=== PATIENT | female | born 1940 | race Caucasian/White ===

== ENCOUNTER 2016-12-08 16:43 | Inpatient (IN) | payer OTHER ==
[2016-12-08] MEDS ORDERED: ONDANSETRON DISINTEGRATING 4 MG TAB PO PRN (19:25)
[2016-12-08] MEDS ORDERED: PROMETHAZINE HCL 25 MG/ML INJ IVP PRN (19:25)
[2016-12-08] MEDS ORDERED: oxyCODONE IR 5 MG TAB PO PRN (19:25)
[2016-12-08] MEDS ORDERED: ONDANSETRON 4 MG/2 ML VIAL IVP PRN (19:25)
[2016-12-08] MEDS ORDERED: ALBUTEROL 3 ML DEYVIAL IH PRN (19:25)
[2016-12-08 20:03] LABS: % IMMATURE GRANULYOCYTES 0.2 % (0.0-1.1); ABSOLUTE IMMATURE GRANULOCYTES 0.01 10^3/uL (0.00-0.10); ADD DIFF? NO; ADD MORPH? NO; ADD SCAN? NO; ATYPICAL LYMPHOCYTE FLAG 10 (0-99); FRAGMENT RBC FLAG 0 (0-99); HEMATOCRIT 41.9 % (38.0-47.0); HEMOGLOBIN 13.9 g/dL (12.6-16.3); LEFT SHIFT FLG 0 (0-99); LIPEMIA HEMOLYSIS FLAG 80 (0-99); MEAN CELL HEMOGLOBIN 32.5 pg (27.9-34.1); MEAN CELL HEMOGLOBIN CONCENTR. 33.2 g/dL (32.4-36.7); MEAN CELL VOLUME 97.9 fL (81.5-99.8); MEAN PLATELET VOLUME 10.5 fL (8.7-11.7); PLATELET CLUMPS FLAG 0 (0-99); PLATELET COUNT 198 10^3/uL (150-400); RED BLOOD CELL COUNT 4.28 10^6/uL (4.18-5.33); RED CELL DISTRIBUTION WIDTH 14.1 % (11.5-15.2)
[2016-12-08 20:27] LABS: ANION GAP 9 mEq/L (8-16); CARBON DIOXIDE 29 mEq/l (22-31); CHLORIDE 101 mEq/L (97-110); CREATININE 0.6 mg/dL (0.6-1.0); GLOMERULAR FILTRATION RATE > 60; GLUCOSE 96 mg/dL (70-100); MAGNESIUM 1.8 mg/dL (1.6-2.3); POTASSIUM 3.9 mEq/L (3.5-5.2); SODIUM 139 mEq/L (134-144)
[2016-12-08] MEDS: LORazepam 0.5 MG TAB PO PRN (20:33)
[2016-12-08 20:39] LABS: TROPONIN I 0.015 ng/mL (0-0.034)
--- NOTE | 2016-12-08 20:44 | CPEKG ---
Heart Rate: 61 RR Interval: 984 P-R Interval: 128 QRSD Interval: 96 QT Interval: 464 QTC Interval: 468 P [place]: 46 QRS [place]: -8 T Wave [place]: 157 EKG Severity - ABNORMAL ECG - EKG Impression: SINUS RHYTHM EKG Impression: SUPRAVENTRICULAR BIGEMINY EKG Impression: ABNORMAL T, CONSIDER ISCHEMIA, LATERAL LEADS Electronically Signed By: Gavino Emerson 10-Dec-2016 08:49:00
--- NOTE | 2016-12-08 20:55 | DX ---
Portable Chest, Single View December 08, 2016 HISTORY: Chest pain. COMPARISON: November 2009. FINDINGS: The heart size is within normal limits. Calcification is seen in the aorta indicating ath erosclerotic disease. There is mild scarring at the left lung base. The right lung is clear. Emphy sematous configuration to the chest. Degenerative change thoracic spine. Surgical clips are seen at the right chest wall and axilla. IMPRESSION: Probable mild scarring at the left lower lobe. No other findings for acute cardiopulmon jacqui abnormality.
[2016-12-08 22:53] LABS: COLOR YELLOW; LEUKOCYTE ESTERASE,URINE NEGATIVE (NEGATIVE); NITRITE,URINE NEGATIVE (NEGATIVE)
[2016-12-08] MEDS ORDERED: IPRATROPIUM 0.03% NASAL SPRAY EACHNARE PRN (23:48)
--- NOTE | 2016-12-09 00:17 | GHP ---
[f rep st] HISTORY AND PHYSICAL DATE OF ADMISSION: 12/08/2016 CHIEF COMPLAINT: Anxiety attack. HISTORY: This is a 76-year-old female, with a past medical history that includes depression and hype rtension, who presents with which she describes as anxiety and concerns that this could be related to a primary cardiac etiology. The patient notes that these symptoms developed about 10 days ago. She has been seen in the ER at an outside hospital twice, and was hospitalized on one of these occasions . During that hospitalization, her blood pressure was noted to be elevated to the systolics of 190. She was started on lisinopril and given some Ativan, and otherwise discharged home without any testi ng. She notes that these symptoms continued intermittently since then. She had an episode today. S he did see her primary care physician, Dr. Andres, who was concerned that her EKGs were differ ent from prior, and for that reason, it was decided that she would be [facility]. Dr. Moses has seen the patient's EKGs and agreed with this plan. The giorgio ent herself notes that if indeed the symptoms are related to anxiety, that this would be a new thing as she has never had anxiety in the past. She currently feels well without any symptoms whatsoever. She also notes that elevated blood pressure is a new thing for her. She has never had that in the p ast. PAST MEDICAL HISTORY: 1. Hypertension. 2. Depression. 3. Anxiety. FAMILY HISTORY: Parents are . SOCIAL HISTORY: Patient is a nonsmoker. Denies significant alcohol use, and lives independently. REVIEW OF SYSTEMS: 10-point review of systems obtained, negative except as per HPI. HOME MEDICATIONS: 1. Lisinopril. 2. Ativan. 3. Atrovent nasal spray. 4. Citalopram. ALLERGIES: No known drug allergies. PHYSICAL EXAM: VITAL SIGNS: BP 148/79, heart rate 62, respiratory rate 18, O2 sats 94% on room air. Temperature is 36.9. GENERAL APPEARANCE: Well-developed/well-nourished female, awake, alert, in no acute distress. EYES: Anicteric. HENT: Oropharynx clear. CARDIOVASCULAR: RRR, no MRG. PULMONARY: CTA bilaterally. ABDOMEN: Soft, nontender, nondistended. EXTREMITIES: No clubbing, cyanosis, or edema. SKIN: Warm, dry, well perfused. NEURO/PSYCH: Oriented, appropriate, pleasant. CLINICAL DATA: Labs reviewed. CBC is completely unremarkable. Chemistry, likewise, unremarkable. ProBNP is 1180, up from 219 three years ago. Troponin is 0.015. Urinalysis is unremarkable. EKG, r eviewed and interpreted independently by myself, shows sinus rhythm. There is evidence of supraventr icular bigeminy and T-wave inversions inferiorly without old to compare. Chest x-ray shows scarring at the left lower lobe, nothing acute. ASSESSMENT AND PLAN: This is a 76-year-old female with no significant past medical history other miguelina n hypertension who presents with anxiety versus chest pain. 1. Chest pain. Somewhat difficult historian, but patient describes what she felt was likely anxiety , but sounds more consistent with chest discomfort. She will be placed on telemetry overnight with s erial troponins obtained. An echocardiogram will also be obtained. Cardiology has been consulted an d will see the patient in consultation in the morning. She likely will need further ischemic evaluat ion, but this will be deferred to Cardiology's discretion. Will obtain a lipid panel and TSH as well . 2. Elevated BNP without evidence of overt heart failure on exam, but again an echocardiogram and car diology consult have been ordered and are pending. 3. Hypertension. Per patient, this is new. She has been started on lisinopril and blood pressure h as been well controlled during this hospitalization and per her report prior to coming here as well. 4. Depression/anxiety. Will continue Ativan and citalopram. 5. Disposition. Observation status. I suspect she will need less than 48-hour stay for evaluation and management of above. 6. The patient is new to my care. Old records reviewed and summarized as per HPI and past medical h istory. Care plan reviewed with Dr. Andres including plans for Cardiology consultation. /[id number]/MODL
[2016-12-09] MEDS: LORazepam 0.5 MG TAB PO PRN ×2 (04:05→21:24)
[2016-12-09] MEDS: LORazepam 0.5 MG TAB PO SCH ×4 (04:07→23:07)
[2016-12-09 06:48] LABS: CHOLESTEROL 135 mg/dL (140-220); CHOLESTEROL/HDL RATIO 3.14 RATIO (1.00-4.44); HIGH DENSITY LIPOPROTEIN 43 mg/dL (40-85); LDL/HDL RATIO 1.88 RATIO (1.00-3.22); LOW DENSITY LIPOPROTEIN 81 mg/dL (80-100); NON-HIGH DENSITY LIPOPROTEIN 92 mg/dL (90-129); TRIGLYCERIDE 57 mg/dL (35-135); VERY LOW DENSITY LIPOPROTEINS 11 mg/dL (8-25)
[2016-12-09 06:59] LABS: TROPONIN I 0.014 ng/mL (0-0.034)
[2016-12-09] MEDS: CITALOPRAM 20 MG TAB PO SCH (08:18)
[2016-12-09] MEDS: LISINOPRIL 10 MG TAB PO SCH (08:18)
[2016-12-09] MEDS: ENOXAPARIN 40 MG/0.4 ML SYR SC SCH (08:20)
[2016-12-09] MEDS ORDERED: NITROGLYCERIN 0.4 MG BTL SL PRN (10:36)
[2016-12-09] MEDS ORDERED: ASPIRIN EC 325 MG TAB PO ONE ×2 (10:36→13:28)
[2016-12-09] MEDS ORDERED: DIAZEPAM 5 MG TAB PO ONE (10:36)
[2016-12-09] MEDS ORDERED: TEMAZEPAM 15 MG CAP PO PRN (10:36)
[2016-12-09] MEDS ORDERED: NS 1,000 ML IV SCH (10:45)
[2016-12-09 11:08] LABS: INR 1.05 (0.83-1.16); PROTIME(PATIENT) 13.6 SEC (12.0-15.0)
[2016-12-09 11:09] LABS: APTT 30.2 SEC (23.0-38.0)
--- NOTE | 2016-12-09 12:05 | ECHO ---
[id number] + + [id number] : : [place] [address] : : [phone] + + Adult Echocardiographic Report + ----+ :Name: Randall BENEDICT Date: 12/09/2016 09:50 AM BP: 123/79 mmHg : : Hospital Admission Number: [id number] Location: 208: :: 1940 Gender: Female Height: 70 in : :Age: 76 yrs Race: WH Weight: 153 lb : :Reason For Study: eval for wall motion abnl : : BSA: 1.9 meters2 : :History: abnl ecg, chest pain : + ----+ MMode/2D Measurements & Calculations IVSd: 0.79 cm RVDd: 2.9 cm FS: 29.3 % Ao root diam: LVPWd: 0.94 cm LVIDd: 4.6 cm EDV(Teich): 2.9 cm LVIDs: 3.3 cm 98.8 ml ESV(Teich): 43.2 ml EF(Teich): 56.3 % LVLd ap4: 7.5 cm SV(MOD-sp4): EDV(MOD-sp4): 77.0 ml 125.0 ml LVLs ap4: 6.8 cm ESV(MOD-sp4): 48.0 ml EF(MOD-sp4): 61.6 % Normal Measurement Values: + + :LVIDd (3.5-5.7cm) IVSd (0.6-1.1cm) LVPWd (0.6-1.1cm) Aortic Root (2.0-3.7cm)Left Atrium (1.5-4.0cm): :LV Vol(d) (76-115ml) LV Vol(s) (29-48ml) Ejec Fraction (50-65%)PV Nito (0.6- 1.2m/s) TV Nito (0.4-1.0m/s) : :MV E Nito (0.8-1.0m/s)MV A Nito (0.3-1.0m/s)LVOT Nito (0.7-1.2m/s) Asc Ao Nito ( 0.9-1.8m/s) : + + Doppler Measurements & Calculations MV E max nito: Ao V2 max: LV V1 max: PA V2 max: 75.5 cm/sec 153.6 cm/sec 110.6 cm/sec 107.5 cm/sec MV A max nito: Ao max PG: LV V1 max PG: PA max P.2 cm/sec 9.4 mmHg 4.9 mmHg 4.6 mmHg MV E/A: 0.74 MV dec time: 0.24 sec TR max nito: 237.7 cm/sec TR max P.6 mmHg RAP systole: 10.0 mmHg RVSP(TR): 32.6 mmHg Left Ventricle The left ventricle is normal in size and function. There is normal left ventricular wall thickness. Ejection Fraction = 55-60%. There is Doppler evidence for diastolic dysfunction. Very subtle mid to distal lateral hypokinesis. Right Ventricle The right ventricle is normal in size and function. Atria The left atrium is mildly dilated. The Left Atrial Volume is 35 ml/m2. The right atrium is borderline dilated. A dilated inferior vena cava suggests increased right atrial pressure. Mitral Valve The mitral valve leaflets appear thickened, but open well. There is no mitral valve stenosis. There is mild mitral regurgitation. Tricuspid Valve The tricuspid valve is normal in structure and function. There is no tricuspid stenosis. There is mild tricuspid regurgitation. Right ventricular systolic pressure is 33mmHg. Aortic Valve The aortic valve is trileaflet. There is no aortic stenosis. Mild aortic regurgitation. Pulmonic Valve The pulmonic valve is not well visualized. Trace pulmonic valvular regurgitation. Great Vessels The aortic root is normal size. Pericardium/Pleural Small pericardial effusion. No echocardiographic evidence for tamponade. Conclusion A two-dimensional transthoracic echocardiogram with M-mode and Doppler was performed. The left ventricle is normal in size and function. Ejection Fraction = 55-60%. There is Doppler evidence for diastolic dysfunction. Subtle mid to distal lateral hypokinesis The left atrium is mildly dilated. The Left Atrial Volume is 35 ml/m2. The right atrium is borderline dilated. A dilated inferior vena cava suggests increased right atrial pressure. There is mild mitral regurgitation. There is mild tricuspid regurgitation. Right ventricular systolic pressure is 33mmHg. Mild aortic regurgitation. Small pericardial effusion. No prior echo Final Reading Physician: Dr Duyen Tellez electronically signed on 12/09/2016 12:03 PM Performed By: Jayde Guo
[2016-12-09] MEDS ORDERED: diphenhydrAMINE 25 MG CAP PO ONE (13:28)
[2016-12-09] MEDS ORDERED: FAMOTIDINE 20 MG TAB ONE (13:28)
[2016-12-09] MEDS ORDERED: DIAZEPAM 5 MG TAB ONE (13:29)
[2016-12-09] MEDS ORDERED: MIDAZOLAM 2 MG/2 ML VIAL ONE (13:45)
[2016-12-09] MEDS ORDERED: LIDOCAINE 1% 30 ML SDV ONE (13:45)
[2016-12-09] MEDS ORDERED: fentaNYL 100 MCG/2 ML INJ ONE (13:45)
[2016-12-09] MEDS ORDERED: IOPAMIDOL (ISOVUE-370) 150 ML BTL IV ONE ×2 (13:46→14:41)
[2016-12-09] MEDS ORDERED: BIVALIRUDIN 250 MG/5 ML VIAL IV ONE (14:41)
[2016-12-09] MEDS ORDERED: NITROGLYCERIN 1,500 MCG/15 ML VIAL MISC ONE (14:41)
[2016-12-09] MEDS ORDERED: CLOPIDOGREL BISULFATE 75 MG TAB ONE (15:15)
[2016-12-09] MEDS ORDERED: ATROPINE SULFATE 1 MG/10 ML SYR IVP PRN (15:38)
[2016-12-09] MEDS ORDERED: HYDROCODONE/APAP 5/325 TAB PO PRN (15:38)
[2016-12-09] MEDS ORDERED: CLOPIDOGREL BISULFATE 75 MG TAB PO ONE (15:38)
--- NOTE | 2016-12-09 15:45 | CPEKG ---
Heart Rate: 58 RR Interval: 1034 P-R Interval: 128 QRSD Interval: 98 QT Interval: 488 QTC Interval: 480 P [place]: 51 QRS [place]: -3 T Wave [place]: 147 EKG Severity - ABNORMAL ECG - EKG Impression: SINUS RHYTHM WITH BRADYCARDIA AND SINUS ARRHYTHMIA EKG Impression: ABNORMAL T, CONSIDER ISCHEMIA, ANT-LAT LEADS Electronically Signed By: Gavino Emerson 10-Dec-2016 08:44:31
[2016-12-09] MEDS: ACETAMINOPHEN 325 MG TAB PO PRN (17:35)
--- NOTE | 2016-12-09 17:59 | HOSPPROG ---
Hospitalist Progress Note Assessment/Plan: #Atypical chest pain/SOB -concern for anginal equivalent and EKG findings concerning for early Wellen's -appreciate Cardiology consultation -plan for cath today #Anxiety -recently started on Celexa, Ativan #Accelerated HTN -Lisinopril #Diet: cardiac #DVT px; Lovenox Disp: warrants obs admission for concern of ACS and cardiac cath Subjective: no chest pain today Objective: Vital Signs Temp Pulse Resp BP Pulse Ox 36.5 C 56 L 16 153/82 H 91 L 12/09/16 16:54 12/09/16 16:54 12/09/16 16:54 12/09/16 16:54 12/09/16 16:54 Laboratory Results 12/08/16 19:51 12/08/16 19:51 12/08/16 12/09/16 12/10/16 05:59 05:59 05:59 Intake Total 300 Output Total 600 Balance -300 PT 13.6 SEC (12.0-15.0) 12/09/16 10:49 INR 1.05 (0.83-1.16) 12/09/16 10:49 - Physical Exam Constitutional: no apparent distress Eyes: PERRL Ears, Nose, Mouth, Throat: moist mucous membranes Cardiovascular: regular rate and rhythym, edema (no LE edema) Respiratory: no respiratory distress, no rales or rhonchi Gastrointestinal: normoactive bowel sounds, soft, non-tender abdomen Genitourinary: no bladder fullness Skin: warm Musculoskeletal: full muscle strength Neurologic: AAOx3 Psychiatric: interacting appropriately ICD10 Worksheet Patient Problems: Problems Problem Status Diagnosed Chest pain Acute - ICD10 Problem Qualifiers (1) Chest pain Qualifiers: Chest pain type: other chest pain Qualified Description: Other chest pain Qualifier Code(s): (R07.89) Other chest pain, (R07.8) Other chest pain
[2016-12-09] MEDS ORDERED: CARVEDILOL 3.125 MG TAB PO ONE (18:08)
[2016-12-09] MEDS: ATORVASTATIN CALCIUM 20 MG TAB PO SCH (21:23)
--- NOTE | 2016-12-09 23:30 | GCON ---
[f rep st] CONSULTATION REASON FOR CARDIOLOGY CONSULTATION: Abnormal electrocardiogram, patient having an episodes of shortness of breath, nausea and diaphoresis. HISTORY OF PRESENT ILLNESS: This patient is a 76-year-old female. She reports , starting 1 week ago, waking up in the morning, reporting doing fine until about 10 a.m., when she had an episode of flushing sensation, in which she noted she was mildly short of breath. She did report some mild nausea and GI disturbance. She did take her blood pressure and noted that was extremely elevated. This had worried her. She rested for a little bit with no improvement in symptoms, reporting that she called EMS who took her to the local hospital, and on upon arrival, she was noted to have blood pressures in the 200s. She was admitted. She was placed on the telemetry floor, she was seen by one of their hospitalists. She had been started on lisinopril, and she had been given Ativan. She reported mild improvement in her symptoms with the Ativan, and her blood pressure appeared to be better controlled. She was told that she was having panic attacks, with hypertension. She was discharged home. She reports since hospital discharge, she has been noticing several more episodes of these hot flushing sensations with nausea, mild shortness of breath. She has been taking Ativan every 8 hours and lisinopril. She has not noticed any significant blood pressure elevation, but is reporting that these incidents are happening at least once or twice a day, usually coming on spontaneously, then dissipating within an hour or two. Her records from the hospitalization were sent to her primary care provider, who reviewed her electrocardiogram, and it was noted that it was significantly different from her previous ones in the past, with noted more biphasic T-waves in V1 and V2, inverted T-waves in I and aVL, V5 and V6. She was concerned that no other cardiac testing had been done on the patient during her recent hospitalization, and she was concerned that her symptoms could be more possibly due to ACS, and had asked the patient to come to the hospital for direct admission. Since her hospital admission, she reports when she feels extremely stressed, she does have significantly more episodes. She denies having any chest pressure. Her laboratory studies have shown negative troponin levels x2. She was noted to have elevated BNP of 11,080. Her TSH was within normal limits. She has been on continuous cardiac monitoring which shows sinus rhythm with occasional PAC with occasional runs of nonsustained SVT for 2-3 beats. The patient reports history of palpitations a year and a half ago, during which she was evaluated by our services, Dr. Peace. A Holter monitor was done at that time, showing sinus rhythm with heart rate ranging from 46 beats to 130 beats per minute with average of 67 beats per minute. She was noted to have rare premature ventricular contraction and frequent premature atrial contractions, no SVT, no pauses. The patient reports prior to her most recent episode, she had been in her normal state health. She denies having any recent fevers, chills, night sweats. Denies any recent GI problems. Denies any history of palpitations, orthopnea, PND, weight gain, edema, near-syncope, or syncopal events. Denies any symptoms suggestive of TIA or CVA. The patient's cardiac risk factors include her age, she was a previous smoker 50 years ago, and family history of coronary artery disease, with father having an MD at 75. PAST MEDICAL HISTORY: Breast cancer in 1992, cataracts, endometriosis, GERD, glaucoma, hypertension, osteopenia, trigeminal neuralgia, depression, anxiety. PAST SURGICAL HISTORY: Cataract surgery, fractured elbow for which she underwent ORIF in 2010, hysterectomy, laser eye surgery, right breast mastectomy in 1992, rhizotomy for her right trigeminal neuralgia. FAMILY HISTORY: The patient reports her father of a myocardial infarction at age 75. Mother of multiple medical problems at age 84. SOCIAL HISTORY: She is a , she lives alone. She has one daughter, three grandchildren, all alive and well. She reports she is a previous smoker, quitting greater than 50 years ago. She reports one occasional alcoholic beverage nightly. Denies any illicit drug use. ALLERGIES: No known drug allergies. HOME MEDICATIONS: Atrovent 2 sprays each naris daily as needed, lorazepam 0.5 mg p.o. q.8 hours, Restoril 10 mg p.o. daily, 10 mg p.o. daily, herbs and supplements. REVIEW OF SYSTEMS: A 10-point Review of Systems done on this patient, all negative except as mentioned above. PHYSICAL EXAMINATION: GENERAL APPEARANCE: Elderly-looking female, mildly obese, alert and oriented to person, place, time, and situation. Appears to be under no acute distress at this time. CURRENT VITAL SIGNS: Blood pressure 123/79, respirations are 61, sinus rhythm, with occasional premature atrial contractions, respiration rate 18, saturating 92% on room air. Temperature 36.6 degrees Celsius. HEENT: Head is normocephalic, lips and tongue are pink and moist with no signs of cyanosis. Conjunctiva pink. NECK: Trachea is midline, +2 carotid pulses bilateral, no auscultated bruits, no jugular vein distention. RESPIRATORY: Lungs clear to auscultation, no rhonchi , rales or wheezes, no accessory muscle use, no intercostal muscle retraction noted. CARDIAC: Regular rate, regular rhythm, S1, S2, 1/6 systolic murmur noted along the left sternal border. No rubs or gallops noted, no S3. ABDOMEN : Soft, nontender, bowel sounds x4 quadrants. No organomegaly and no palpable masses. SKIN: [place], warm, dry, no cyanosis, no peripheral edema. VASCULAR: + 2 carotids bilateral, +2 radials bilateral, +1 dorsal pedal and posterior tibial pulses bilateral. NEURO: Cranial nerves 2-12 grossly intact. LABORATORY STUDIES: WBC 4.97, hemoglobin 13.9, hematocrit 41.9, platelet count 198. Sodium 139, potassium 3.9, chloride 101, CO2 29, BUN 10, creatinine 0.6, glucose 96, calcium 9.0, magnesium 1.8. Initial troponin of 0.015. ProBNP 1180. UA done this morning negative. Repeated troponin done this morning was 0.014. Triglycerides 57, total cholesterol 135, LDL 81, HDL 43. Patient noted to have an INR of 1.05. STUDIES: Initial electrocardiogram shows sinus rhythm with inverted T-waves in leads I, aVL, V5 and V6, patient also noted to have biphasic T-waves in V2 and V3. In comparison to previous electrocardiogram done on October 26, 2016, at [facility], inverted T-waves in lateral and biphasic T-waves in V2 and V3 are new. Chest x-ray showed no acute cardiopulmonary abnormality. Echocardiogram done this morning showed EF 55% to 60%, diastolic dysfunction, there is a subtle mid to distal lateral hypokinesis, LA is mildly dilated, RA is borderline dilated, dilated inferior vena cava suggesting increased right atrial pressures, mild MR, mild TR, RVSP was estimated at 33 mmHg, mild AI, small pericardial effusion. ASSESSMENT AND PLAN: 1. Flushing sensation with shortness of breath, nausea, and diaphoresis: Potentially concerned about possible cardiac ischemia, especially in light of recent electrocardiogram changes, negative troponin, but noted to have mildly abnormal echocardiogram with LV wall showing subtle mid to distal lateral hypokinesis. Patient with cardiac risk factors of age, previous smoker, and family history of hypertension, and family history of coronary artery disease, concerning that her symptoms are potentially her angina equivalent, after discussing with Dr. Sargent, reviewing past electrocardiograms an echocardiogram , it was decided that the patient should be further evaluated for cardiac ischemia by cardiac catheterization. Risks and benefits of this procedure were explained to the patient, she verbalizes understanding. Will plan for her to have this procedure done later today. Until then, she has been started on aspirin. Further recommendations will come post cardiac catheterization. 2. Diastolic dysfunction: On echocardiogram, patient noted to have diastolic dysfunction, mildly elevated BNP. BP appears to be controlled on home medication. Pending on results cardiac catheterization, consideration of starting her on diuretic. 3. Hypertension: Blood pressure currently well controlled on current regimen, will continue to follow and make adjustments as needed. 4. Premature atrial contractions: Patient with previous Holter monitoring showing frequent PACs, done a year and a half ago, noted to have episodes of premature atrial contractions with small runs of SVT 3-4 beats on monitor. TSH is within normal limits. Consider potentially starting her on a low-dose beta shantanu pending results of cardiac catheterization. 5. Depression/anxiety: Hospitalists have continued the patient's home dose of Ativan and citalopram. Thank you for this cardiac consultation. We will be glad to follow along with you. Further recommendations post cardiac catheterization. /[id number]/MODL MTDD
--- NOTE | 2016-12-10 02:30 | CPIP ---
[f rep st] INVASIVE CARDIAC PROCEDURE DATE OF PROCEDURE: 12/09/2016 PROCEDURE: 1. Coronary angiography. 2. Left ventriculography. 3. Stenting of 1st diagonal artery with Synergy drug-eluting stent. INDICATION: Acute coronary syndrome with EKG changes. ACCESS: Patient was prepped and draped in a sterile fashion. 1% lidocaine was used to anesthetize t he right inguinal region. A 6-Norwegian introducer sheath was placed selectively into the right common femoral artery via modified Seldinger technique. CORONARY ANGIOGRAPHY: A 6-Norwegian JL4 was advanced through the left main coronary artery and images o btained. The left main coronary artery bifurcated into an LAD and circumflex coronary arteries. The left main coronary artery was relatively short and appeared free of any significant disease. The le ft anterior descending coronary artery gave rise to 1 prominent diagonal branch, as well as 1 smaller diagonal branch. The left anterior descending coronary artery was diffusely diseased. In the midve ssel, there was a segmental 25% stenosis present. In the distal vessel, there was a long segmental 1 5% stenosis present. The 1st diagonal artery was a large vessel. The first diagonal artery had a pr oximal 99% stenosis with NIKKI-2 flow. The circumflex coronary artery was a large vessel. The circum flex coronary artery had mild luminal irregularities with no stenosis greater than 15%. 6-Norwegian JR4 was advanced to the right coronary artery and images obtained. The right coronary artery was domina nt. The right coronary artery appeared mild aneurysmal in the proximal segment, but was otherwise no rmal. LEFT VENTRICULOGRAPHY: A 6-Norwegian pigtail catheter was advanced in the left ventricle and images obt ained. Left ventricle was normal in size, had normal systolic function. Estimated ejection fraction is 55%. PERCUTANEOUS CORONARY INTERVENTION OF THE DIAGONAL ARTERY: A 6-Norwegian EBU 3.75 catheter was advanced through the left main and images obtained. Angiography confirmed the presence of high-grade disease involving the proximal 1st diagonal artery with reduced NIKKI flow. A loose wire was placed in the d istal vessel and position verified by angiography. A 1.2 x 12 Emerge balloon was used to pre-dilate the lesion. This was followed by a 2.0 x 15 Emerge balloon. Followup angiography demonstrated NIKKI- 3 flow with significant residual stenosis. A 2.25 x 24 Synergy drug-eluting stent was then placed. Followup angiography demonstrated NIKKI-3 flow, incomplete stent expansion in the proximal portion of the stent. The proximal portion of the stent was post-dilated with a 2.5 x 15 NC balloon. Followup angiography demonstrated NIKKI-3 flow. No residual stenosis. COMPLICATIONS: None. CONCLUSIONS: 1. Single-vessel coronary artery disease. 2. Normal left ventricular systolic function. 3. Status post successful stenting of the 1st diagonal artery. /[id number]/MODL
[2016-12-10 05:19] LABS: ANION GAP 5 mEq/L (8-16); CALCIUM 8.5 mg/dL (8.5-10.4); CARBON DIOXIDE 29 mEq/l (22-31); CHLORIDE 105 mEq/L (97-110); CREATININE 0.5 mg/dL (0.6-1.0); GLOMERULAR FILTRATION RATE > 60; GLUCOSE 80 mg/dL (70-100); POTASSIUM 3.8 mEq/L (3.5-5.2); SODIUM 139 mEq/L (134-144)
[2016-12-10] MEDS: LORazepam 0.5 MG TAB PO SCH ×3 (08:16→21:01)
[2016-12-10 08:35] LABS: % IMMATURE GRANULYOCYTES 0.2 % (0.0-1.1); ABSOLUTE IMMATURE GRANULOCYTES 0.01 10^3/uL (0.00-0.10); ADD DIFF? NO; ADD MORPH? NO; ADD SCAN? NO; ATYPICAL LYMPHOCYTE FLAG 10 (0-99); FRAGMENT RBC FLAG 0 (0-99); HEMATOCRIT 39.2 % (38.0-47.0); HEMOGLOBIN 13.1 g/dL (12.6-16.3); LEFT SHIFT FLG 0 (0-99); LIPEMIA HEMOLYSIS FLAG 80 (0-99); MEAN CELL HEMOGLOBIN 32.4 pg (27.9-34.1); MEAN CELL HEMOGLOBIN CONCENTR. 33.4 g/dL (32.4-36.7); MEAN PLATELET VOLUME 10.2 fL (8.7-11.7); PLATELET CLUMPS FLAG 0 (0-99); PLATELET COUNT 170 10^3/uL (150-400); RED BLOOD CELL COUNT 4.04 10^6/uL (4.18-5.33); RED CELL DISTRIBUTION WIDTH 13.9 % (11.5-15.2)
--- NOTE | 2016-12-10 08:35 | HOSPPROG ---
Hospitalist Progress Note Assessment/Plan: #CAD -cath 12/09 and GENEVA to 1st diagonal -repeat episodes today with mild bump in trop. TTE with no WM abnormalities. Repeat trop -Plavix, ASA, statin, Coreg, PRN nitro #Anxiety -recently started on Celexa, Ativan #Accelerated HTN -Lisinopril #Compensated diastolic HF -cont BP control #HLD: statin #Diet: cardiac #DVT px; Lovenox Disp: warrants inpatient admission given recurrent symptoms, elevated troponin and need for telemetry and cardiac testing Subjective: had 3 "hot flash/anxiety" episodes today Objective: Vital Signs Temp Pulse Resp BP Pulse Ox 36.6 C 77 14 121/69 H 95 12/10/16 07:11 12/10/16 07:11 12/10/16 07:11 12/10/16 07:11 12/10/16 07:11 Laboratory Results 12/10/16 04:04 12/09/16 12/10/16 12/11/16 05:59 05:59 05:59 Intake Total 300 600 Output Total 600 Balance -300 600 PT 13.6 SEC (12.0-15.0) 12/09/16 10:49 INR 1.05 (0.83-1.16) 12/09/16 10:49 - Physical Exam Constitutional: no apparent distress Eyes: PERRL Ears, Nose, Mouth, Throat: moist mucous membranes Cardiovascular: regular rate and rhythym, no murmur, rub, or gallop, edema (none ) Respiratory: no respiratory distress, no rales or rhonchi Gastrointestinal: normoactive bowel sounds, soft, non-tender abdomen Genitourinary: no bladder fullness Skin: warm Musculoskeletal: other (right cath site without pain or hematoma) Neurologic: AAOx3 Psychiatric: interacting appropriately ICD10 Worksheet Patient Problems: Problems Problem Status Diagnosed Chest pain Acute - ICD10 Problem Qualifiers (1) Chest pain Qualifiers: Chest pain type: other chest pain Qualified Description: Other chest pain Qualifier Code(s): (R07.89) Other chest pain, (R07.8) Other chest pain
--- NOTE | 2016-12-10 08:57 | CPEKG ---
Heart Rate: 48 RR Interval: 1250 P-R Interval: 120 QRSD Interval: 94 QT Interval: 488 QTC Interval: 436 P [place]: 59 QRS [place]: 27 T Wave [place]: 158 EKG Severity - ABNORMAL ECG - EKG Impression: SINUS RHYTHM (BRADYCARDIA) EKG Impression: MULTIPLE ATRIAL PREMATURE COMPLEXES EKG Impression: ABNORMAL T, CONSIDER ISCHEMIA, ANT-LAT LEADS Electronically Signed By: Gavino Emerson 11-Dec-2016 19:26:35
[2016-12-10] MEDS: CITALOPRAM 20 MG TAB PO SCH (09:57)
[2016-12-10] MEDS: CLOPIDOGREL BISULFATE 75 MG TAB PO SCH (09:57)
[2016-12-10] MEDS: ASPIRIN EC 325 MG TAB PO SCH (09:58)
[2016-12-10] MEDS: CARVEDILOL 3.125 MG TAB PO SCH ×2 (09:58→18:13)
[2016-12-10] MEDS: LISINOPRIL 10 MG TAB PO SCH (09:58)
[2016-12-10] MEDS: ENOXAPARIN 40 MG/0.4 ML SYR SC SCH (10:00)
--- NOTE | 2016-12-10 10:52 | ECHO ---
[id number] + + [address] : : [facility] [address] : : [phone] + + Adult Echocardiographic Report + ----+ :Name: Randall BENEDICT Date: 12/10/2016 10:06 AM : : Hospital Admission Number: [id number] Location: 208: :: 1940 Gender: Female Height: 70 in : :Age: 76 yrs Race: WH Weight: 153 lb : :Reason For Study: Eval EF : : BSA: 1.9 meters2 : + ----+ Doppler Measurements & Calculations TR max roxi: 249.8 cm/sec TR max P.0 mmHg RAP systole: 10.0 mmHg RVSP(TR): 35.0 mmHg Left Ventricle Ejection Fraction = 60-65%. The left ventricular wall motion is normal. Great Vessels Mildly dilated ascending aorta. Pericardium/Pleural trivial pericardial effusion. Conclusion Limited 2-D echo. Ejection Fraction = 60-65%. The left ventricular wall motion is normal. trivial pericardial effusion. Compared wtih 12/09/2016, lateral wall motion abnormality has resolved post PCI Final Reading Physician: Dr Duyen Tellez electronically signed on 12/10/2016 10:51 AM Ordering Physician: Zachary Sargent Performed By: Pauline Thompson RDCS
[2016-12-10 11:16] LABS: TROPONIN I 0.044 ng/mL (0-0.034)
--- NOTE | 2016-12-10 11:47 | PDCARPN ---
Cardiology Progress Note Chief Complaint: The patient reports she had been doing well since procedure, at 8 a.m. had a another panic attack with feeling of flushing and mild shortness of breath lasting for less than a few minutes. Assessment/Plan: Assessment: 76-year-old female noted hypertension new onset of panic attacks for 1 week, with symptoms shortness of breath, flushing sensation, and diaphoresis. Noted abnormal electrocardiogram biphasic T-waves in V2 through V3, inverted T-waves in 1, aVL V5 V6.. Echocardiogram (12/08/2016 is) showed normal LV size with subtle mid to distal lateral hypokinesis. Diastolic dysfunction, EF 55-60%, mild MR, mild TR RVSP of 33 mm Hg mild AI. Underwent coronary angiogram/[address] Sargent, found to have a large 1st diagonal proximal 99% stenosis in NIKKI 2 2 flow. Luminal irregularities in other vessels, but no other flow- limiting disease. EF was estimated at 55%. PCI with a 2.25 x 20 synergy GENEVA, leaving 0 residual and NIKKI 3 flow. Post procedure patient reporting no further episodes panic attack, until this morning at 8:00 a.m.. She has remained in sinus rhythm rare PVC continuous cardiac monitoring. 12 lead electrocardiogram shows sinus bradycardia, mild improvement in T-wave inversion in anterior lateral leads. Limited echo done after her episode showing wall motion of LV back to normal. Troponin drawn showing mildly elevated at 0.044. Plan: ACS: Patient reporting panic attack this a.m. mild, concerned that this is her angina equivalent. Echo this morning shows improvement in LV function post PCI. Mildly elevated troponin at 0.044, potentially due to washout from PCI. Will repeat troponin later today at 3:00 p.m., continue on dual anti-platelet therapy of aspirin and clopidogrel. Started on dose of beta-shantanu. Will also attempt of apply long-term nitrate of isosorbide, to see if this improves symptoms. Potentially there could be some anxiety, continue on Celexa and Ativan as ordered. 2. Diastolic dysfunction: Echo noted diastolic dysfunction, mildly elevated BNP on admission, BP well controlled at current time on carvedilol and lisinopril, no change in. Next and a 3. Hypertension: Blood pressure med occasion control as above. 4. Dyslipidemia: Started on atorvastatin post PCI, will need a repeat fasting lipid and liver panel 6-8 weeks. 5. Depression anxiety: Continue on dosages of Celexa and Ativan.. Due the patient potentially having a her angina clinical it symptoms, recent PCI , and mildly elevated troponin, will plan for her to stay 1 more night for observation. 12/10/16 11:44 Subjective: Patient reporting episode of panic attack this a.m., reporting mild flushing and shortness of breath, lasting for few minutes. Denies of any palpitations, lightheadedness, claudication, chest pressure, orthopnea, PND. Reviewed/Discussed With: hospitalist (Dr Phillips), other (Dr Sargent) Objective: Vital Signs (8 Hrs) Temp Pulse Resp BP Pulse Ox 12/10/16 11:28 36.7 C 60 19 115/70 90 L 12/10/16 09:58 72 113/64 12/10/16 07:11 36.6 C 77 14 121/69 H 95 12/10/16 04:00 36.6 C 53 L 16 103/69 95 Intake/Output (24 Hrs) 12/09/16 12/10/16 12/11/16 05:59 05:59 05:59 Intake Total 300 600 Output Total 600 Balance -300 600 Intake: Oral (ml) 300 600 Output: Urine (ml) 600 Toilet 600 Other: Weight 69.5 kg Intake Quantity Yes Sufficient Number of Voids Toilet 3 2 Result Diagrams: 12/10/16 08:30 12/11/16 04:12 Cardiac Labs: Cardiac Lab Results (72 Hrs) 12/10/16 12/09/16 12/08/16 10:45 06:00 19:51 Troponin I 0.044 H 0.014 0.015 - Physical Exam Constitutional: WDWN Ears, Nose, Mouth, Throat: moist mucous membranes Cardiovascular: regular rate and rhythm, no murmurs, no rubs, no gallops, pulses symmetric bilat, No jugular vein distention, No carotid bruit Peripheral Pulses: 1+: dorsalis-pedis (R), dorsalis-pedis (L), 2+: carotid (R), carotid (L) Respiratory: clear to auscultate bilat, no crackles, no wheezes Gastrointestinal: normoactive bowel sounds Skin: warm, other (Right groin site, catheter insertion site with a out redness , swelling, drainage, ecchymosis or hematoma. No auscultated bruit over site.) , No no edema (Trace pedal edema bilateral lower extremities) Neurologic: AAOx3 Psychiatric: cooperative, interactive, following commands, anxious ICD10 Worksheet Patient Problems: Problems Problem Status Diagnosed Chest pain Acute
[2016-12-10] MEDS: ISOSORBIDE MONONITRATE 30 MG TAB.SR PO SCH (12:04)
[2016-12-10] MEDS: ACETAMINOPHEN 325 MG TAB PO PRN (18:13)
[2016-12-10] MEDS: ATORVASTATIN CALCIUM 20 MG TAB PO SCH (20:56)
[2016-12-11 06:01] LABS: ANION GAP 5 mEq/L (8-16); CALCIUM 8.4 mg/dL (8.5-10.4); CARBON DIOXIDE 30 mEq/l (22-31); CHLORIDE 106 mEq/L (97-110); CREATININE 0.6 mg/dL (0.6-1.0); GLOMERULAR FILTRATION RATE > 60; GLUCOSE 81 mg/dL (70-100); POTASSIUM 4.1 mEq/L (3.5-5.2); SODIUM 141 mEq/L (134-144)
[2016-12-11] MEDS: LORazepam 0.5 MG TAB PO PRN ×2 (06:10→20:15)
[2016-12-11 06:11] LABS: TROPONIN I 0.034 ng/mL (0-0.034)
[2016-12-11] MEDS: LORazepam 0.5 MG TAB PO SCH ×2 (08:13→14:07)
[2016-12-11] MEDS: CLOPIDOGREL BISULFATE 75 MG TAB PO SCH (08:14)
[2016-12-11] MEDS: CITALOPRAM 20 MG TAB PO SCH (08:14)
[2016-12-11] MEDS: ISOSORBIDE MONONITRATE 30 MG TAB.SR PO SCH (08:14)
[2016-12-11] MEDS: CARVEDILOL 3.125 MG TAB PO SCH ×2 (08:14→17:18)
[2016-12-11] MEDS: LISINOPRIL 10 MG TAB PO SCH (08:14)
[2016-12-11] MEDS: ASPIRIN EC 325 MG TAB PO SCH (08:14)
[2016-12-11] MEDS: ENOXAPARIN 40 MG/0.4 ML SYR SC SCH (08:15)
--- NOTE | 2016-12-11 13:12 | CPEKG ---
Heart Rate: 51 RR Interval: 1176 P-R Interval: 124 QRSD Interval: 94 QT Interval: 456 QTC Interval: 420 P [place]: 66 QRS [place]: 12 T Wave [place]: 156 EKG Severity - ABNORMAL ECG - EKG Impression: SINUS RHYTHM EKG Impression: MULTIPLE ATRIAL PREMATURE COMPLEXES EKG Impression: ABNORMAL T, CONSIDER ISCHEMIA, ANT-LAT LEADS Electronically Signed By: Gavino Emerson 11-Dec-2016 19:26:01
[2016-12-11] MEDS: ACETAMINOPHEN 325 MG TAB PO PRN ×2 (14:07→18:17)
--- NOTE | 2016-12-11 15:15 | PDCARPN ---
Cardiology Progress Note Chief Complaint: patient reports she has had 2 episodes of "panic attack" with symptoms of flushing and mild shortness of breath. Both episodes happened while sitting Or in bed Assessment/Plan: Assessment: 76-year-old female noted hypertension new onset of panic attacks for 1 week, with symptoms shortness of breath, flushing sensation, and diaphoresis. Noted abnormal electrocardiogram biphasic T-waves in V2 through V3, inverted T-waves in 1, aVL V5 V6.. Echocardiogram (12/08/2016 is) showed normal LV size with subtle mid to distal lateral hypokinesis. Diastolic dysfunction, EF 55-60%, mild MR, mild TR RVSP of 33 mm Hg mild AI. Underwent coronary angiogram [address] Sargent, found to have a large 1st diagonal proximal 99% stenosis in NIKKI 2 2 flow. Luminal irregularities in other vessels, but no other flow- limiting disease. EF was estimated at 55%. PCI with a 2.25 x 20 synergy GENEVA, leaving 0 residual and NIKKI 3 flow. Patient reporting panic attackPost catheterization day 1, similar to symptoms that had brought her in flushing sensation, mild shortness of breath. Troponin level drawn after Initial "attack" showed mild elevation troponin of 0.044, potentially could be PCI washout. Electrocardiogram unchanged. Repeated Limited echocardiogram (2015) showed normalization of LV wall function. Patient reports 2 episodes of "anxiety" with associated symptoms of feeling flushed, shortness of breath last night and this morning, both times at rest. Denies of any chest pressure or pain. Denies of dyspnea on exertion. Troponin level has trended down to 0.034 this a.m.. Electrocardiogram is unchanged. No arrhythmias noted at the time of "anxiety". Continues cardiac monitoring shows sinus rhythm with occasional PAC. Occasional PVC. No other malignant arrhythmias noted. TSH within normal limits. Electrolytes within normal limits. Plan: ACS: Patient reporting continuation of "panic attacks" with the symptom of flushing and shortness of breath. reports similar to what brought her into the hospital, but not as intense. Troponin on downward trend, LV function has normalized post PCI. Patient continue on dual anti-platelet therapy of aspirin and clopidogrel, started on low dose beta-shantanu, started on long- acting nitrate. Troponin normal this a.m.. Discussed with Dr. Sargent and Geoff, concern "panic attacks" may be from some other etiology beside cardiac ischemia. No arrhythmia has been noted at the time symptoms. TSH is within normal limits, normal electrolyte and renal function, no anemia. Will evaluate for possible Pheo, order plasma metanephrines, consider 48 a hour Holter monitor as an outpatient. 2. Diastolic dysfunction: Echo noted diastolic dysfunction, mildly elevated BNP on admission, BP well controlled at current time on carvedilol and lisinopril, no change in. Next and a 3. Hypertension: Well controlled on current regime. No change at this time. 4. Dyslipidemia: On atorvastatin , fasting lipid and liver panel in 6-8 weeks. 5. Depression anxiety: Continue on dosages of Celexa and Ativan. Question if her ongoing "Panic attacks" may have some anxiety issues to this. 12/11/16 15:02 Subjective: patient reports episodes of "Panic attack " reporting flushing sensation with shortness of breath. Reporting lasting for few minutes. Both episodes happened why she lays in bed. Denies of any chest pain, orthopnea, PND, near- syncope, or syncopal events. Denies of palpitations. Reviewed/Discussed With: hospitalist (Dr Hendrickson), other (Dr Tellez and Dr Sargent) Objective: Vital Signs (8 Hrs) Temp Pulse Resp BP Pulse Ox 12/11/16 11:44 36.2 C 54 L 17 89/55 L 93 12/11/16 07:17 36.8 C 64 19 112/69 97 Intake/Output (24 Hrs) 12/10/16 12/11/16 12/12/16 05:59 05:59 05:59 Intake Total 600 710 600 Balance 600 710 600 Intake: Oral (ml) 600 700 600 IV Intake (ml) 10 Other: Intake Quantity Yes Sufficient Number of Voids Toilet 2 Result Diagrams: 12/10/16 08:30 12/11/16 04:12 Cardiac Labs: Cardiac Lab Results (72 Hrs) 12/11/16 12/10/16 12/10/16 04:12 15:38 10:45 Troponin I 0.034 0.038 H 0.044 H 12/09/16 12/08/16 06:00 19:51 Troponin I 0.014 0.015 - Physical Exam Constitutional: WDWN, healthy appearing Ears, Nose, Mouth, Throat: moist mucous membranes Cardiovascular: regular rate and rhythm, no murmurs, no rubs, no gallops, pulses symmetric bilat, No jugular vein distention, No carotid bruit Peripheral Pulses: 1+: dorsalis-pedis (R), dorsalis-pedis (L), 2+: carotid (R), carotid (L) Respiratory: clear to auscultate bilat, no crackles, no wheezes, other Gastrointestinal: normoactive bowel sounds, no masses Skin: warm, No no edema (trace pedial edema in LE to ankles) Neurologic: AAOx3 Psychiatric: cooperative, interactive, following commands ICD10 Worksheet Patient Problems: Problems Problem Status Diagnosed Chest pain Acute
--- NOTE | 2016-12-11 16:57 | HOSPPROG ---
Hospitalist Progress Note Assessment/Plan: 76 yo F presenting with c/o > 1 week sxs of "panic attacks" and noted to have ACS and CAD # ACS: with atypical sxs that are described as "anxiety attack", she is s/p coronary angio with PCI and her sxs have improved but still present. Continue asa, bb, statin, plavix. Cardiology following. # "panic attacks": as above, thought to be anginal equivalent initially, however may be a separate issues. Recurred again this am, personally reviewed tele from that time w/o clear arrythmia. TSH wnl. Checking plasma metanephrines and monitoring overnight. Could be true anxiety component to this as well. # acute diastolic heart failure: in setting of acs, EF relatively preserved at 55%, bnp elevated, no e/o significant volume overload, meds as above as well as acei. EF improved s/p PCI # HTN: bp well controlled on current regimen as above # hx of depression: continue citalopram # dispo: IP status, high risk presenting issues Patient new to my care. Old records reviewed and summarized as above. Care plan reviewed with cardiology as above. Subjective: no significant overnight events, patient had episode of "panic" again this morning, associated with flushing and fear Objective: Vital Signs Temp Pulse Resp BP Pulse Ox 36.5 C 56 L 16 87/55 L 92 12/11/16 15:44 12/11/16 15:44 12/11/16 15:44 12/11/16 15:44 12/11/16 15:44 Laboratory Results 12/10/16 08:30 12/11/16 04:12 12/10/16 12/11/16 12/12/16 05:59 05:59 05:59 Intake Total 600 710 720 Balance 600 710 720 PT 13.6 SEC (12.0-15.0) 12/09/16 10:49 INR 1.05 (0.83-1.16) 12/09/16 10:49 awake alert nad anicteric op clear rrr occasional skipped beats cta b soft nt nd trace ble edema warm dry well perfsued oriented appropriate ICD10 Worksheet Patient Problems: Problems Problem Status Diagnosed Chest pain Acute
[2016-12-11] MEDS: ATORVASTATIN CALCIUM 20 MG TAB PO SCH (20:14)
[2016-12-12] MEDS: LORazepam 0.5 MG TAB PO SCH ×2 (02:15→07:50)
[2016-12-12] MEDS: LORazepam 0.5 MG TAB PO PRN (04:09)
[2016-12-12 04:17] VITALS: PULSE 64
[2016-12-12 07:29] VITALS: BP 109/81; RESP 17; TEMP 97.9; O2SAT 97
[2016-12-12] MEDS: CLOPIDOGREL BISULFATE 75 MG TAB PO SCH (08:54)
[2016-12-12] MEDS: CITALOPRAM 20 MG TAB PO SCH (08:54)
[2016-12-12] MEDS: CARVEDILOL 3.125 MG TAB PO SCH (08:54)
[2016-12-12] MEDS: ENOXAPARIN 40 MG/0.4 ML SYR SC SCH (08:55)
[2016-12-12] MEDS: ISOSORBIDE MONONITRATE 30 MG TAB.SR PO SCH (08:55)
[2016-12-12] MEDS: ASPIRIN EC 325 MG TAB PO SCH (08:55)
--- NOTE | 2016-12-12 09:25 | PDDCSUM ---
Discharge Summary Discharge Summary: Dates of service 12/08-12/12/16 Consultations: cardiology Procedures performed: echo, left heart cath and ventriculography, PCI Hospital course by problem: # ACS: atypical sxs described as 'anxiety' or 'panic' felt to be anginal equivalent, s/p stent to 1st diagonal, medical mgmt including asa, plavix, statin, bb # "panic attacks": continued but decreased s/p stent, no significant events on tele correlating with sxs, tsh wnl, plasma metanephrines pending to eval for pheo. Possibly related to true anxiety but sounds somewhat atypical for that as well. Will continue to monitor, may need holter as an OP # acute diastolic heart failure: in setting of acs, EF relatively preserved at 55%, bnp elevated, no e/o significant volume overload, meds as above as well as acei. EF improved s/p PCI # HTN: bp well controlled on current regimen as above # hx of depression: continue citalopram Dispo: dc home, f/u with cardiology and PCP Mckenna Meds: include asa, carvedilol, plavix, atorvastatin, lisinopril and ativan > 35 min spent in dc of this patient, more than half in coordination of care
--- NOTE | 2016-12-12 09:34 | CPEKG ---
Heart Rate: 59 RR Interval: 1017 P-R Interval: 128 QRSD Interval: 96 QT Interval: 416 QTC Interval: 413 P [place]: 51 QRS [place]: -5 T Wave [place]: 163 EKG Severity - ABNORMAL ECG - EKG Impression: SINUS RHYTHM EKG Impression: MULTIPLE ATRIAL PREMATURE COMPLEXES EKG Impression: PROBABLE LEFT ATRIAL ABNORMALITY EKG Impression: ABNORMAL T, CONSIDER ISCHEMIA, LATERAL LEADS Electronically Signed By: Gavino Emerson 12-Dec-2016 19:36:25
--- NOTE | 2016-12-12 10:47 | PDCARPN ---
Cardiology Progress Note Chief Complaint: Patient reports she has only had 1 episode of panic attack feeling flush in lightheaded since yesterday morning. Assessment/Plan: Assessment: 76-year-old female noted hypertension new onset of panic attacks for 1 week, with symptoms shortness of breath, flushing sensation, and diaphoresis. Noted abnormal electrocardiogram biphasic T-waves in V2 through V3, inverted T-waves in 1, aVL V5 V6.. Echocardiogram (12/08/2016 is) showed normal LV size with subtle mid to distal lateral hypokinesis. Diastolic dysfunction, EF 55-60%, mild MR, mild TR RVSP of 33 mm Hg mild AI. Underwent coronary angiogram [address] Sargent, found to have a large 1st diagonal proximal 99% stenosis in NIKKI 2 2 flow. Luminal irregularities in other vessels, but no other flow- limiting disease. EF was estimated at 55%. PCI with a 2.25 x 20 synergy GENEVA, leaving 0 residual and NIKKI 3 flow. Patient reporting panic attackPost catheterization day 1, similar to symptoms that had brought her in flushing sensation, mild shortness of breath. Troponin level drawn after Initial "attack" showed mild elevation troponin of 0.044, potentially could be PCI washout. Electrocardiogram unchanged. Repeated Limited echocardiogram (2015) showed normalization of LV wall function post PCI. Patient reports improvement in symptoms today, last 24 hours only had 1 episode of panic attack" at a.m. today. Reviewing monitor, no significant arrhythmias noted except occasional PAC. Vital signs remained stable. Laboratories studies through hospitalization showed normal electrolyte and renal function, normal TSH, no anemia. Ordered plasma metanephrine level, results are pending. Patient reports no chest pain, shortness of breath. 12 lead electrocardiogram shows improvement in ST depression leads, in comparison to admission EKG. Plan: ACS: Patient reporting continuation of "panic attacks", reporting less severe than what she had prior to admission. She reports associated symptoms feeling flush and mild fatigue. Denies of any chest pressure shortness of breath. Troponin was normal yesterday, electrocardiogram appears to be improved , limited echo done 1 day post catheterization showed normalization of LV function. Did discussed with the patient about the symptoms do continue, consideration of having her have a repeat coronary catheterization, she does not want to do that at this time. Will continue on current medical management of anti-platelet therapy of aspirin and Plavix, beta-shantanu, and isosorbide. Awaiting laboratory studies for plasma metanephrine. Discuss with Dr. Sargent, and agrees with plan. 2. Diastolic dysfunction: Echo noted diastolic dysfunction, mildly elevated BNP on admission, BP well controlled at current time on carvedilol and lisinopril. Trace pedal edema, no signs of heart failure at this time. 3. Hypertension: Well controlled on current regime. No change at this time. 4. Dyslipidemia: On atorvastatin , fasting lipid and liver panel in 6-8 weeks. 5. Depression anxiety: Continue on dosages of Celexa and Ativan. Question if her ongoing "Panic attacks" may have some anxiety issues to this. Follow up with PCP as outpatient. Patient planning to be discharged today, explained the importance of medication therapy with recent PCI, including the importance of anti-platelet therapy, she verbalizes understanding. She does have a follow-up office appointment next Thursday with myself. She has been encouraged that if any problems or concerns, as outpatient she called our office or seek medical attention. 12/12/16 10:50 Subjective: Patient reports no chest pain, shortness of breath, palpitations, orthopnea, near-syncope or syncopal events. Does report 1 episode of panic attack, similar what brought her in, but not a significant, reporting feeling flush and mild lightheadedness. Reviewed/Discussed With: hospitalist (Dr Hendrickson), other (Dr Sargent) Objective: Vital Signs (8 Hrs) Temp Pulse Resp BP Pulse Ox 12/12/16 07:27 36.6 C 64 17 109/81 H 97 12/12/16 04:00 36.8 C 64 14 113/69 96 Intake/Output (24 Hrs) 12/11/16 12/12/16 12/13/16 05:59 05:59 05:59 Intake Total 710 1280 Balance 710 1280 Intake: Oral (ml) 700 1270 IV Intake (ml) 10 10 Other: Number of Voids Toilet 2 Result Diagrams: 12/10/16 08:30 12/11/16 04:12 Cardiac Labs: Cardiac Lab Results (72 Hrs) 12/11/16 12/10/16 12/10/16 04:12 15:38 10:45 Troponin I 0.034 0.038 H 0.044 H - Physical Exam Constitutional: WDWN, healthy appearing, no apparent distress Ears, Nose, Mouth, Throat: moist mucous membranes Cardiovascular: regular rate and rhythm, no murmurs, no rubs, no gallops, pulses symmetric bilat, No jugular vein distention, No carotid bruit Peripheral Pulses: 1+: dorsalis-pedis (R), dorsalis-pedis (L), 2+: carotid (R), carotid (L) Respiratory: clear to auscultate bilat, no crackles, no wheezes, No reduced air movement Gastrointestinal: normoactive bowel sounds, no tenderness Skin: no rashes, no abrasions, no edema (trace pedial), other ( Right groin site, catheter insertion site, with no redness swelling drainage ecchymosis or hematoma. No auscultated bruit over site.) Musculoskeletal: no muscular tenderness Neurologic: AAOx3, CN II-XII grossly intact Psychiatric: cooperative, interactive, following commands, anxious ( Mild) ICD10 Worksheet Patient Problems: Problems Problem Status Diagnosed Chest pain Acute
[2016-12-12] MEDS: LISINOPRIL 10 MG TAB PO SCH (11:01)
[2016-12-15 10:59] LABS: METANEPHRINES PLASMA METAP <0.20 nmol/L (<0.50)
== END 2016-12-12 11:31 | disposition home or self-care (01) | DRG 246 ==
LOC: F2W 18:50 → OBSVTOIN 12-10 16:18
PROVIDERS: ADMIT Internal Medicine; ATTEND Internal Medicine
PROC: B2151ZZ Fluoroscopy of Left Heart using Low Osmolar Contrast (ICD-10-PCS; principal; 2016-12-10)
PROC: 4A023N7 Measurement of Cardiac Sampling and Pressure, Left Heart, Percutaneous Approach (ICD-10-PCS; principal; 2016-12-10)
PROC: 027034Z Dilation of Coronary Artery, One Artery with Drug-eluting Intraluminal Device, Percutaneous Approach (ICD-10-PCS; principal; 2016-12-10)
PROC: B2111ZZ Fluoroscopy of Multiple Coronary Arteries using Low Osmolar Contrast (ICD-10-PCS; principal; 2016-12-10)
DX: I24.9 Acute ischemic heart disease, unspecified (principal); I50.31 Acute diastolic (congestive) heart failure; F41.0 Panic disorder [episodic paroxysmal anxiety]; F41.8 Other specified anxiety disorders; I10 Essential (primary) hypertension; E78.5 Hyperlipidemia, unspecified; Z87.891 Personal history of nicotine dependence; Z85.3 Personal history of malignant neoplasm of breast
CPT/HCPCS: 83835-90; 97116-GP; 97162-GP; C1725; C1760; C1769; C1874; C1887; C9600; G0378; G8978-GP-CJ; G8979-GP-CI; G8980-GP-CI; J0583; J1644; J1650; J2250; J3010; Q9967

== ENCOUNTER → 2017-03-25 | Outpatient (CLI) | payer OTHER | LOC: FIMAGING 13:13 | PROVIDERS: ATTEND Internal Medicine | DX: M79.89 Other specified soft tissue disorders (principal) ==

== ENCOUNTER → 2017-04-06 | Outpatient (CLI) | payer OTHER | LOC: FIMAGING 15:48 | PROVIDERS: ATTEND Internal Medicine | DX: M79.89 Other specified soft tissue disorders (principal) ==

== ENCOUNTER 2017-08-13 14:27 | Inpatient (IN) | payer OTHER ==
[2017-08-13] MEDS ORDERED: ONDANSETRON 4 MG/2 ML VIAL IVP ONE (14:54)
--- NOTE | 2017-08-13 14:58 | EDPHY ---
H & P Time Seen by Provider: 08/13/17 14:54 HPI/ROS: Chief complaint. Limited trauma activation HPI. 68-year-old female here by EMS after having a mechanical fall and striking her right face and right arm. She sustained laceration to the right upper lip and is she is on anticoagulation is bleeding quite profusely. She did not lose consciousness. She maybe has some neck pain. She also has right upper arm and forearm pain. No injury to chest or back or abdomen or legs. Cervical spine is immobilized ROS Constitutional. no fever/chills, no weakness Eyes. no problems with vision ENT. no sore throat, no nasal drainage Cardiovascular. no chest pain Respiratory. no shortness of breath, no cough Abdominal. no abdominal pain, no nausea/vomiting, no diarrhea . no problems urinating MS. no calf pain/swelling, possible neck pain, no joint pain Skin. Lip laceration; injury to right arm Lymph. no swollen glands Neuro. no headache, no dizziness, no difficulty walking or with speech Past Medical/Surgical History: Trigeminal neuralgia, the movement disorder, hypertension, breast cancer Social History: Single, nonsmoker, no alcohol Smoking Status: Never smoked Physical Exam: General Appearance: Alert well-developed female moderate distress vital signs are stable. Cervical collar in place Eyes: Pupils equal and round no pallor or injection. ENT, tympanic membranes normal. Laceration to the right upper lip along the vermilion border this bleeding profusely. No signs of loose teeth or dental trauma. I do not see lacerations in the mouth or in the inner upper lower lips. Respiratory: There are no retractions, lungs are clear to auscultation. Cardiovascular: Regular rate and rhythm. Gastrointestinal: Abdomen is soft and nontender, no masses, bowel sounds normal. Neurological: Awake and alert, sensory and motor exams grossly normal. Skin: Lip laceration and hematoma to the inner aspect of her humerus as well as hematoma to the right forearm Musculoskeletal: Neck is supple nontender. Extremities symmetrical, full range of motion. Psychiatric: Patient is oriented X 3, there is no agitation. Constitutional: Initial Vital Signs Temperature (C) 36.7 C 08/13/17 14:27 Heart Rate 77 08/13/17 14:27 Respiratory Rate 20 08/13/17 14:27 Blood Pressure 174/102 H 08/13/17 14:27 O2 Sat (%) 92 08/13/17 14:27 O2 Delivery Mode Room Air Allergies/Adverse Reactions: No Known Allergies Allergy (Verified 08/13/17 19:38) Home Medications: Medication Instructions Recorded Herbals/Supplements -Info Only 1 ea PO DAILY 12/08/16 Ipratropium 0.03% Nasal [Atrovent 2 sprays EACHNARE DAILY PRN 12/08/16 0.03% Nasal (*)] LORazepam [Ativan (*)] 0.5 mg PO Q8H PRN 12/08/16 Clopidogrel Bisulfate [Plavix (*)] 75 mg PO DAILY #30 tab 12/12/16 Aspirin [Aspirin 81mg (*)] 81 mg PO HS 08/13/17 Citalopram [CeleXA] 20 mg PO HS 08/13/17 Losartan Potassium [Cozaar 50 mg 50 mg PO BID 08/13/17 (*)] Medical Decision Making - Diagnostics Imaging Results: Imaging Impressions Cervical Spine CT 08/13/17 14:59 Impression: 1. No acute posttraumatic abnormality identified. Mild anterior height reduction at C7 appears to be old. If there is persistent pain or neurologic deficit, consider MRI and/or flexion and extension views if clinically indicated. 2. Degenerative change, most prominent at C5-C6, with mild to moderate spinal canal narrowing. 3. Additional findings as above. Findings discussed with Sonia Newton answering for Julieth Pedersen 08/13/2017 at 16:05. Chest X-Ray 08/13/17 14:59 Impression: No convincing acute intrathoracic abnormality, when compared to the previous exam from November. PORTABLE RIGHT HUMERUS (3 Views, at 3:16 PM): The osseous structures are demineralized. The patient has had prior remote ORIF of the proximal right ulna. The humerus is intact. There is no acute fracture. There are degenerative osteoarthritic features of the right acromioclavicular joint. Minor contour deformities of the right 8th through 10th ribs are not convincingly different than in November 2016. Impression: No acute abnormality. PORTABLE RIGHT FOREARM (2 Views, at 3:20 PM): The patient has undergone prior remote ORIF for a proximal ulnar fracture which is healed. There is a malleable reconstruction plate secured by multiple orthopedic screws. There is no periprosthetic lucency. There is some dorsal soft tissue swelling. The bones are demineralized. The radiocarpal and intercarpal ligaments are maintained. Impression: There is no acute osseous abnormality observed. Forearm X-Ray 08/13/17 14:59 Impression: No convincing acute intrathoracic abnormality, when compared to the previous exam from November. PORTABLE RIGHT HUMERUS (3 Views, at 3:16 PM): The osseous structures are demineralized. The patient has had prior remote ORIF of the proximal right ulna. The humerus is intact. There is no acute fracture. There are degenerative osteoarthritic features of the right acromioclavicular joint. Minor contour deformities of the right 8th through 10th ribs are not convincingly different than in November 2016. Impression: No acute abnormality. PORTABLE RIGHT FOREARM (2 Views, at 3:20 PM): The patient has undergone prior remote ORIF for a proximal ulnar fracture which is healed. There is a malleable reconstruction plate secured by multiple orthopedic screws. There is no periprosthetic lucency. There is some dorsal soft tissue swelling. The bones are demineralized. The radiocarpal and intercarpal ligaments are maintained. Impression: There is no acute osseous abnormality observed. Head CT 08/13/17 14:59 Impression: 1. No acute intracranial findings. 2. Diffuse cerebral atrophy with periventricular and subcortical low attenuation consistent with chronic microvascular ischemic gliosis. Findings discussed with Sonia Newton answering for JULIETH PEDERSEN 08/13/2017 at 16 :05. Humerus X-Ray 08/13/17 14:59 Impression: No convincing acute intrathoracic abnormality, when compared to the previous exam from November. PORTABLE RIGHT HUMERUS (3 Views, at 3:16 PM): The osseous structures are demineralized. The patient has had prior remote ORIF of the proximal right ulna. The humerus is intact. There is no acute fracture. There are degenerative osteoarthritic features of the right acromioclavicular joint. Minor contour deformities of the right 8th through 10th ribs are not convincingly different than in November 2016. Impression: No acute abnormality. PORTABLE RIGHT FOREARM (2 Views, at 3:20 PM): The patient has undergone prior remote ORIF for a proximal ulnar fracture which is healed. There is a malleable reconstruction plate secured by multiple orthopedic screws. There is no periprosthetic lucency. There is some dorsal soft tissue swelling. The bones are demineralized. The radiocarpal and intercarpal ligaments are maintained. Impression: There is no acute osseous abnormality observed. X-ray right humerus and forearm show no evidence of fracture dislocation Noncontrast head CT is nonacute Noncontrast cervical spine CT is nonacute These are reviewed by me and discussed with Dr. Crowe knee Procedures: Procedure: Laceration repair. Verbal consent was obtained from the patient. The two cm laceration on the right upper lip was anesthetized in the usual fashion. The wound was irrigated , draped and explored to its base with a gloved finger. There were no deep structures involved. No tendon injury was identified. The wound was repaired with eight 5-0 prolene sutures. The wound repair was simple. The procedure was performed by myself. ED Course/Re-evaluation: Re-evaluation 335pm--patient stable Re-evaluation 4:30 p.m.--patient, family, and I discussed imaging and lab results. Patient is unable to walk with her walker If had case management see the patient. I consulted with Dr. Dinh, trauma surgeon, who agrees to the admission and sees The patient in the emergency department I consulted and discussed case with Dr. Velasco, hospitalist, who will see the patient in consult Differential Diagnosis: I considered skull fracture, intracranial bleeding. Patient had lip laceration with significant bleeding and subsequent hematoma and then bruising on her chin. I considered cervical spine injury as well as fracture to the right forearm and humerus. At this point it appears that the patient has contusions and a laceration and hematomas but no significant injury. However the patient lives alone and really cannot manage by herself - Data Points Laboratory Results: Laboratory Results 08/13/17 14:27 08/13/17 14:27 08/13/17 08/13/17 08/13/17 14:27 14:27 14:27 WBC 5.14 10^3/uL 10^3/uL (3.80-9.50) RBC 4.37 10^6/uL 10^6/uL (4.18-5.33) Hgb 14.4 g/dL g/dL (12.6-16.3) Hct 43.3 % % (38.0-47.0) MCV 99.1 fL fL (81.5-99.8) MCH 33.0 pg pg (27.9-34.1) MCHC 33.3 g/dL g/dL (32.4-36.7) RDW 14.0 % % (11.5-15.2) Plt Count 211 10^3/uL 10^3/uL (150-400) MPV 10.6 fL fL (8.7-11.7) Neut % (Auto) 62.8 % % (39.3-74.2) Lymph % (Auto) 27.6 % % (15.0-45.0) Sawyer % (Auto) 7.8 % % (4.5-13.0) Eos % (Auto) 0.6 % % (0.6-7.6) Baso % (Auto) 1.0 % % (0.3-1.7) Nucleat RBC Rel Count 0.0 % % (0.0-0.2) Absolute Neuts (auto) 3.23 10^3/uL 10^3/uL (1.70-6.50) Absolute Lymphs (auto) 1.42 10^3/uL 10^3/uL (1.00-3.00) Absolute Monos (auto) 0.40 10^3/uL 10^3/uL (0.30-0.80) Absolute Eos (auto) 0.03 10^3/uL 10^3/uL (0.03-0.40) Absolute Basos (auto) 0.05 10^3/uL 10^3/uL (0.02-0.10) Absolute Nucleated RBC 0.00 10^3/uL 10^3/uL (0-0.01) Immature Gran % 0.2 % % (0.0-1.1) Immature Gran # 0.01 10^3/uL 10^3/uL (0.00-0.10) PT 12.5 SEC SEC (12.0-15.0) INR 0.94 (0.83-1.16) APTT 26.3 SEC SEC (23.0-38.0) Sodium 140 mEq/L mEq/L (134-144) Potassium 3.9 mEq/L mEq/L (3.5-5.2) Chloride 104 mEq/L mEq/L (97-110) Carbon Dioxide 26 mEq/l mEq/l (22-31) Anion Gap 10 mEq/L mEq/L (8-16) BUN 13 mg/dL mg/dL (7-23) Creatinine 0.5 mg/dL L mg/dL (0.6-1.0) Estimated GFR > 60 Glucose 92 mg/dL mg/dL (70-100) Calcium 9.3 mg/dL mg/dL (8.5-10.4) Medications Given: Sodium Chloride (Ns) 1,000 mls @ 100 mls/hr IV CONT MARANDA Stop: 08/14/17 05:14 Last Admin: 08/13/17 19:32 Dose: 1,000 mls Discontinued Medications Morphine Sulfate (Morphine) 2 mg IVP EDNOW ONE Stop: 08/13/17 14:55 Last Admin: 08/13/17 14:58 Dose: 2 mg Morphine Sulfate (Morphine) 4 mg IVP EDNOW ONE Stop: 08/13/17 19:27 Last Admin: 08/13/17 19:33 Dose: 2 mg Ondansetron HCl (Zofran) 4 mg IVP EDNOW ONE Stop: 08/13/17 14:55 Last Admin: 08/13/17 14:58 Dose: 4 mg Departure - Departure Disposition: [facility] Inpatient Acute Clinical Impression: Multiple contusions Lip laceration Qualifiers: Encounter type: initial encounter Qualified Code(s): S01.511A - Laceration without foreign body of lip, initial encounter Condition: Fair
[2017-08-13 15:08] LABS: % IMMATURE GRANULYOCYTES 0.2 % (0.0-1.1); ABSOLUTE IMMATURE GRANULOCYTES 0.01 10^3/uL (0.00-0.10); ADD DIFF? NO; ADD MORPH? NO; ADD SCAN? NO; ATYPICAL LYMPHOCYTE FLAG 0 (0-99); FRAGMENT RBC FLAG 0 (0-99); HEMATOCRIT 43.3 % (38.0-47.0); HEMOGLOBIN 14.4 g/dL (12.6-16.3); LEFT SHIFT FLG 0 (0-99); LIPEMIA HEMOLYSIS FLAG 80 (0-99); MEAN CELL HEMOGLOBIN CONCENTR. 33.3 g/dL (32.4-36.7); MEAN CELL VOLUME 99.1 fL (81.5-99.8); MEAN PLATELET VOLUME 10.6 fL (8.7-11.7); PLATELET CLUMPS FLAG 10 (0-99); PLATELET COUNT 211 10^3/uL (150-400); RED BLOOD CELL COUNT 4.37 10^6/uL (4.18-5.33)
[2017-08-13 15:19] LABS: INR 0.94 (0.83-1.16); PROTIME(PATIENT) 12.5 SEC (12.0-15.0)
[2017-08-13 15:20] LABS: ANION GAP 10 mEq/L (8-16); APTT 26.3 SEC (23.0-38.0); CALCIUM 9.3 mg/dL (8.5-10.4); CARBON DIOXIDE 26 mEq/l (22-31); CHLORIDE 104 mEq/L (97-110); CREATININE 0.5 mg/dL (0.6-1.0); GLOMERULAR FILTRATION RATE > 60; GLUCOSE 92 mg/dL (70-100); POTASSIUM 3.9 mEq/L (3.5-5.2); SODIUM 140 mEq/L (134-144)
[2017-08-13] MEDS ORDERED: ONDANSETRON 4 MG/2 ML VIAL IVP PRN (18:12)
[2017-08-13] MEDS ORDERED: HYDROCODONE/APAP 5/325 TAB PO PRN (18:12)
--- NOTE | 2017-08-13 19:12 | GHP ---
[f rep st] HISTORY AND PHYSICAL DATE OF ADMISSION: 08/13/2017 CHIEF COMPLAINT: Fall. HISTORY OF PRESENT ILLNESS: This is a 76-year-old female who lives alone unassisted who was leaving her home earlier today where she tripped and sustained a mechanical fall. She says that she fell for jha bracing most of her fall with her face. She denies having any loss of consciousness. She was a ble to contact her [facility] [employer] who subsequently sent EMS to her home, picked her up and brought her he re where she was received as a limited trauma activation. Here in the emergency department she compl ains of facial pain as well as arm pain. She is on anticoagulation and has multiple bruises all over her body, the most marked of which are on her right upper extremity and her face. She continues to ooze somewhat from her right lip. Her airway is intact. Her breathing is normal and her circulation is adequate. Her main complaint at this point in time is the multiple bruises and body aches that s he currently has. PAST MEDICAL HISTORY: Significant for trigeminal neuralgia, an unspecified movement disorder, hypert ension and breast cancer. PAST SURGICAL HISTORY: Inguinal hernia, bilateral mastectomies with TRAM flap reconstruction and tub al ligation performed remotely. SOCIAL HISTORY: Lives alone. Denies illicit drug use. FAMILY HISTORY: Noncontributory. PHYSICAL EXAM: VITAL SIGNS: Blood pressure 170/100, heart rate 77. She is 92% on room air. CONSTI TUTIONAL: She is in no apparent distress. She appears comfortable. Is not dizzy. EYES: Her pupil s are equal, round, and reactive to light and accommodation. She has anicteric sclerae. Her extraoc ular movements are intact. EAR, NOSE, MOUTH AND THROAT: Moist mucous membranes. Hearing is normal. She has a laceration on her right lip which has been sutured closed and is edematous. Her chin is bruised as well. CARDIOVASCULAR: She has a regular rate and rhythm. She is hypertensive. RESPIRAT ORY: She has no respiratory distress. No rales,no crepitus,no step-off, nontender GI: Her abdomen is soft, nondistended. She has scars consistent with her previous surgical history. SKIN: Warm. M ultiple bruises on her right upper extremity and her chin as well as her right lip. MUSCULOSKELETAL: She has full muscle strength, no muscle tenderness, normal joint range of motion. NEUROLOGIC: Geraldine rt and oriented. Her cranial nerves 2-12 are intact. She has no weakness and no numbness. PSYCH: She is interacting appropriately. She is not anxious. LYMPH, HEME AND IMMUNOLOGIC: No cervical or groin lymphadenopathy is appreciated. LABS: White count normal at 5. H and H normal at 14 and 43. Chemistry is unremarkable. IMAGING: All of the images which were personally reviewed by me, including a C-spine, head CT, a [facility] st x-ray, and plain films of her right upper extremity humerus and forearm, were negative for acute b pooja injury. ASSESSMENT AND PLAN: A 76-year-old female, status post mechanical fall with multiple medical comorbi dities. Given the patient's persistent pain and absence of any acute fracture, we will admit her to the Trauma Service overnight for pain control. I have asked the medicine team to be involved as she has multiple medical comorbidities and is hypertensive in the emergency department. Will manage her pain accordingly. I did tell the patient that given the fact that she has had more falls in the rece nt time frame that she would likely benefit from more advanced care and even moving to a home where radha gann could provide this. She understood and had thought about this but is hesitant to do so. Her germain ghter is at bedside and endorses this as well. /[id number]/MODL
[2017-08-13] MEDS ORDERED: NS 1,000 ML IV SCH (19:15)
--- NOTE | 2017-08-13 20:12 | GCON ---
[f rep st] CONSULTATION INTERNAL MEDICINE CONSULTATION DATE OF CONSULTATION: 08/13/2017 REFERRING PHYSICIAN: Reagan Dinh MD REASON FOR CONSULTATION: Medical opinion regarding management of medical condition status post traum a. HISTORY OF PRESENT ILLNESS: The patient is a 76-year-old female, who took a fall today. She has rec ently developed a movement disorder. It is currently being worked up by a neurologist at [facility] S he had an MRI of her brain last week as an outpatient. She took a dose of Valium for the MRI, which caused a pascale syncopal event. Shortly after arriving home from the MRI, she completely passed out a nd hit her head on the ground. Her vision is still poor and has not returned to normal since that ev ent. This is further affecting her ability to ambulate. She saw her primary care doctor, Dr. Isamar Cronin, in the office this morning, who diagnosed her with a concussion due to this fall and hitting of her head. Later the same day she was at home meeting a friend. She walked down the ramp out of her home with an attempt to transition to her walker when she sustained a mechanical fall. This time she did not hit her head or lose consciousness, but she did strike the right side of her face, as we ll as the right arm with significant hematoma and pain. She sustained a laceration on her right lip, which bled excessively due to her aspirin and Plavix that she takes for a recent cardiac stent. She is now requiring admission to the hospital because she is unable ambulate and unsafe for returning b [facility] to her independent living situation. PAST MEDICAL HISTORY: 1. Coronary artery disease, status post stent November 2016. 2. Hypertension. 3. Breast cancer 1992. 4. Trigeminal neuralgia. 5. 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 Currently being worked up at [facility]. MEDICATIONS: Please see computerized record for full detailed list. ALLERGIES: No known drug allergies. SOCIAL HISTORY: She smoked only for 2 years very distantly. She will occasionally have a glass of w ine with dinner, but is concerned with her movement disorder of having any more than that as she does not want to fall. She lives alone. REVIEW OF SYSTEMS: Complete review of systems obtained. Review of systems negative regarding consti tutional, HEENT, GI, pulmonary, cardiovascular, , hematology, skin, muscular, endocrine, psych, exc ept for positives and negatives as in HPI. FAMILY HISTORY: Father with MA at age 75. PHYSICAL EXAMINATION: GENERAL: Well-developed, well-nourished female, in no acute distress. VITAL SIGNS: Temperature is 36.7, pulse 77, blood pressure 174/102, saturating 98% on room air. HEENT: E ye examination normal conjunctivae. Pupils round, react to light. ENT: Normal ears, nose. Hearing intact. Normal teeth. Oropharynx moist. NECK: Trachea midline. No thyromegaly. CHEST: Normal respiratory effort. LUNGS: Clear to auscultation bilaterally. CARDIOVASCULAR: Regular rate, rhyth m. No murmur. No lower extremity edema. ABDOMEN: Soft, nontender. No hepatomegaly. SKIN: She h as a very large hematoma on the right side of her chin causing quite a bit of deformity and swelling. There is a laceration oozing dark blood on the lip. Her right arm also has pain with movement with a hematoma. MUSCULOSKELETAL: No cyanosis or clubbing. Strength 5/5 upper and lower extremities. NEUROLOGIC: Cranial nerves intact. Normal sensation to light touch. PSYCH: Awake, alert and orien gayle x3. Normal affect. Normal judgment. Normal memory. LABORATORY DATA: White count 5.14, hematocrit 43.3, platelets 211, sodium 140, potassium 3.9, chlori de 104, bicarb 26, BUN 13, creatinine 0.5, glucose 92, INR 0.9. Forehead CT is negative. The remain joseph of her x-rays in the emergency room are negative for fracture. This case was discussed with Dr. Pedersen. He is requesting internal medicine consultation for the joya figueredo to be admitted to the trauma service. ASSESSMENT/PLAN: 1. Facial hematoma, status post fall. This will be treated supportively. We will follow her H and H. 2. Recent concussion. She is still suffering from vision loss, which came on immediately after fall ing and hitting her head last week. We will get PT, OT consultations. I have a high suspicion she i s going to need some type of inpatient rehab. 3. Coronary artery disease, status post recent stent in November. She is still [facility] the [facility]avix. I think it can be restarted in the morning. She is also on aspirin, which can probably be held until bleeding has completely ceased. Need to clarify all of her home medications. 4. Movement disorder, not otherwise specified. This is being worked up as an outpatient with Arnoldo escobar at [facility]. She had an MRI as an outpatient last week, for which I do not have formal results, a lthough the patient seems to think nothing remarkable was found. We will continue her Sinemet. Thank you very much for this consultation. Internal Medicine will continue to follow as long as she is hospitalized. /[id number]/MODL
[2017-08-13] MEDS: CITALOPRAM 20 MG TAB PO SCH (21:38)
[2017-08-13] MEDS: IBUPROFEN 600 MG TAB PO SCH (21:38)
[2017-08-13] MEDS: LOSARTAN POTASSIUM 50 MG TAB PO SCH (21:39)
[2017-08-13] MEDS: LORazepam 0.5 MG TAB PO PRN (22:05)
[2017-08-14 05:24] LABS: % IMMATURE GRANULYOCYTES 0.2 % (0.0-1.1); ABSOLUTE IMMATURE GRANULOCYTES 0.01 10^3/uL (0.00-0.10); ADD DIFF? NO; ADD MORPH? NO; ADD SCAN? NO; ATYPICAL LYMPHOCYTE FLAG 10 (0-99); FRAGMENT RBC FLAG 0 (0-99); HEMATOCRIT 36.4 % (38.0-47.0); HEMOGLOBIN 11.8 g/dL (12.6-16.3); LEFT SHIFT FLG 0 (0-99); LIPEMIA HEMOLYSIS FLAG 80 (0-99); MEAN CELL HEMOGLOBIN 32.5 pg (27.9-34.1); MEAN CELL HEMOGLOBIN CONCENTR. 32.4 g/dL (32.4-36.7); MEAN CELL VOLUME 100.3 fL (81.5-99.8); MEAN PLATELET VOLUME 10.4 fL (8.7-11.7); PLATELET CLUMPS FLAG 0 (0-99); PLATELET COUNT 167 10^3/uL (150-400); RED BLOOD CELL COUNT 3.63 10^6/uL (4.18-5.33)
[2017-08-14] MEDS: IBUPROFEN 600 MG TAB PO SCH ×3 (05:25→21:33)
[2017-08-14 05:54] LABS: ANION GAP 8 mEq/L (8-16); CALCIUM 8.6 mg/dL (8.5-10.4); CARBON DIOXIDE 26 mEq/l (22-31); CHLORIDE 105 mEq/L (97-110); CREATININE 0.6 mg/dL (0.6-1.0); GLOMERULAR FILTRATION RATE > 60; GLUCOSE 85 mg/dL (70-100); POTASSIUM 3.7 mEq/L (3.5-5.2); SODIUM 139 mEq/L (134-144)
[2017-08-14] MEDS: LOSARTAN POTASSIUM 50 MG TAB PO SCH ×2 (08:31→21:38)
[2017-08-14] MEDS: CLOPIDOGREL BISULFATE 75 MG TAB PO SCH (08:32)
--- NOTE | 2017-08-14 08:50 | SOAPPROG ---
SOAP Progress Note Assessment/Plan: Assessment: Plan: Subjective: s: vision is improving. O: vss, af vision ok ou, denies diplopia mouth and chin echymotic and swollen. lungs clear heart nml s1s2 no m abd soft, benign esxt wnl. access: s/p fall onto face on plavix, asa plan: wprl woth [pt/ot, needs to decide if she can return home or needs snif or rehab. plavix to restart today. Objective: Vital Signs Temp Pulse Resp BP Pulse Ox 36.6 C 54 L 15 105/60 96 08/14/17 08:14 08/14/17 08:14 08/14/17 08:14 08/14/17 08:31 08/14/17 08:14 Laboratory Results 08/14/17 04:57 08/14/17 04:57 08/13/17 08/14/17 08/15/17 05:59 05:59 05:59 Intake Total 1400 Output Total 500 Balance 900 PT 12.5 SEC (12.0-15.0) 08/13/17 14:27 INR 0.94 (0.83-1.16) 08/13/17 14:27 ICD10 Worksheet Patient Problems: Problems Problem Status Onset Lip laceration Acute Multiple contusions Acute Chest pain Acute
[2017-08-14] MEDS: LORazepam 0.5 MG TAB PO PRN ×2 (12:41→21:33)
--- NOTE | 2017-08-14 14:32 | HOSPPROG ---
Hospitalist Progress Note Assessment/Plan: 76y female with multiple mechanical falls. First encounter, chart reviewed. D/W RN and CM #Falls multiple needs SNF movement disorder #Hematoma watch closely #Hematuria related to fall? UA sent monitor for possible complication #Concussion from fall cont rehab #HX CAD needs plavix restarted ASA when bleeding stable #Dispo needs SNF likely go in 1-2 days if no signs of bleeding Subjective: Feeling better. No specific concnerns. Pain stable. Objective: Vital Signs Temp Pulse Resp BP Pulse Ox 36.6 C 59 L 17 97/59 L 91 L 08/14/17 08:14 08/14/17 11:19 08/14/17 11:19 08/14/17 11:19 08/14/17 11:19 Laboratory Results 08/14/17 04:57 08/14/17 04:57 08/13/17 08/14/17 08/15/17 05:59 05:59 05:59 Intake Total 1400 Output Total 500 Balance 900 PT 12.5 SEC (12.0-15.0) 08/13/17 14:27 INR 0.94 (0.83-1.16) 08/13/17 14:27 - Physical Exam Constitutional: no apparent distress, appears nourished, not in pain Eyes: PERRL, anicteric sclera, EOMI Ears, Nose, Mouth, Throat: hearing normal, other (hematoma), No ears appear normal, No oral thrush Cardiovascular: regular rate and rhythym, No JVD, No edema Respiratory: no respiratory distress, no rales or rhonchi, reduced air movement Gastrointestinal: No tenderness, No ascites, No guarding Skin: warm, other (hematoma), No mottled Musculoskeletal: no joint effusions, abnormal gait, generalized weakness Neurologic: AAOx3 Psychiatric: interacting appropriately, not anxious, not encephalopathic, thought process linear ICD10 Worksheet Patient Problems: Problems Problem Status Onset Chest pain Acute Lip laceration Acute Multiple contusions Acute
--- NOTE | 2017-08-14 14:50 | ASMTCMCOM ---
CM Note CM Note Notes: Pt and dghtr in agreement w PT & hospitalist recomendation for SNF, choose [facility] in [place]. Tricia shepherd [facility] will obtain [employer] insurance auth today and pt will d/c tomorrow. Date Signed: 08/14/2017 02:49 PM Electronically Signed By:RENZO Gaming
[2017-08-14 20:04] VITALS: RESP 16
[2017-08-14] MEDS: CITALOPRAM 20 MG TAB PO SCH (21:33)
[2017-08-15 04:24] VITALS: O2SAT 97
[2017-08-15 05:01] LABS: HEMOGLOBIN 11.3 g/dL (12.6-16.3)
[2017-08-15 07:37] VITALS: BP 113/67; PULSE 67; TEMP 98.6
[2017-08-15 08:10] LABS: COLOR YELLOW; LEUKOCYTE ESTERASE,URINE 1+ (NEGATIVE); NITRITE,URINE NEGATIVE (NEGATIVE)
[2017-08-15 08:15] LABS: MUCUS TRACE /lpf (NONE-1+)
[2017-08-15 08:16] LABS: RBC,URINE NONE SEEN /hpf (0-3)
[2017-08-15] MEDS: IBUPROFEN 600 MG TAB PO SCH ×2 (08:56→13:48)
[2017-08-15] MEDS: CLOPIDOGREL BISULFATE 75 MG TAB PO SCH (08:56)
[2017-08-15] MEDS: LOSARTAN POTASSIUM 50 MG TAB PO SCH (09:00)
[2017-08-15] MEDS: LORazepam 0.5 MG TAB PO PRN (09:04)
[2017-08-15] MEDS ORDERED: LOSARTAN POTASSIUM 50 MG TAB PO SCH (11:35)
--- NOTE | 2017-08-15 11:52 | PDIAF ---
- Diagnosis Code Status: Full Code - Medication Management Discharge Medications: Medications to Continue on Transfer Herbals/Supplements -Info Only 1 ea PO DAILY 12/08/16 [Last Taken 12/08/16] Ipratropium 0.03% Nasal [Atrovent 0.03% Nasal (*)] 2 sprays EACHNARE DAILY PRN 12/08/16 [Last Taken Unknown] LORazepam [Ativan (*)] 0.5 mg PO Q8H PRN 12/08/16 [Last Taken 08/12/17] Clopidogrel Bisulfate [Plavix (*)] 75 mg PO DAILY #30 tab 12/12/16 [Last Taken 08/13/17] Aspirin [Aspirin 81mg (*)] 81 mg PO HS 08/13/17 [Last Taken 08/12/17] Citalopram [CeleXA 20 MG] 20 mg PO HS 08/13/17 [Last Taken 08/12/17] Hydrocodone/APAP 5/325 [[place] 5/325 (*)] 1 - 2 tab PO Q6HRS PRN tab 08/15/17 [ Last Taken Unknown] Ibuprofen 400 mg PO TID #90 tablet 08/15/17 [Last Taken Unknown] Discharge Medications: Refer to the Discharge Home Medication list for PRN reason. - Orders Services needed: Certified Master Electrician, Physical Therapy, Occupational Therapy Diet Recommendation: cardiac -low fat low salt Diet Texture: Regular Texture Diet - Follow Up Care Current Providers and Referrals: Patient,NotPresent [Unknown] - As per Instructions
--- NOTE | 2017-08-15 12:02 | PDIAF ---
- Diagnosis Code Status: Full Code - Medication Management Discharge Medications: Medications to Continue on Transfer Herbals/Supplements -Info Only 1 ea PO DAILY 12/08/16 [Last Taken 12/08/16] Ipratropium 0.03% Nasal [Atrovent 0.03% Nasal (*)] 2 sprays EACHNARE DAILY PRN 12/08/16 [Last Taken Unknown] LORazepam [Ativan (*)] 0.5 mg PO Q8H PRN 12/08/16 [Last Taken 08/12/17] Clopidogrel Bisulfate [Plavix (*)] 75 mg PO DAILY #30 tab 12/12/16 [Last Taken 08/13/17] Aspirin [Aspirin 81mg (*)] 81 mg PO HS 08/13/17 [Last Taken 08/12/17] Citalopram [CeleXA 20 MG] 20 mg PO HS 08/13/17 [Last Taken 08/12/17] Hydrocodone/APAP 5/325 [[place] 5/325 (*)] 1 - 2 tab PO Q6HRS PRN tab 08/15/17 [ Last Taken Unknown] Ibuprofen 400 mg PO TID #90 tablet 08/15/17 [Last Taken Unknown] Discharge Medications: Refer to the Discharge Home Medication list for PRN reason. - Orders Services needed: Certified Loan Clerk, Physical Therapy, Occupational Therapy Diet Recommendation: cardiac -low fat low salt Diet Texture: Regular Texture Diet Sutures/[place] Site: R upper lip liseth border Date to Remove Sutures/[place]: 08/24/17 - Follow Up Care Current Providers and Referrals: Patient,NotPresent [Unknown] - As per Instructions
--- NOTE | 2017-08-15 12:46 | ASMTCMCOM ---
CM Note CM Note Notes: Pt ready for DC to [facility] today. Nathan at the [facility] arranged W/C transport for 2:00. Pt concerned about her clothes so dtr Sally was contacted ([phone]), Sally will meet pt at [facility] at 2:30. Final orders faxed. Date Signed: 08/15/2017 12:45 PM Electronically Signed By:Nadine Manuel LCSW
--- NOTE | 2017-08-15 12:49 | ASDISCHSUM ---
Discharge Information Plan Status:SNF Medically Cleared to Leave: Discharge Date: D/C Disposition: ADT D/C Disposition:[facility] Facility Projected Discharge Date:08/15/2017 11:00 AM Transportation at D/C: Discharge Delay Reason: Follow-Up Date:08/15/2017 11:00 AM Discharge Slot: Final Diagnosis: Placement Information Referral Type:*Custodial/SNF Referral ID:[id number] Provider Name:[facility] Address 1:[address] Address 2: City:[place] Selection Factors: State:[place] Patient Contact Information Contact Name:REMA Relationship:Daughter Address: Home Phone: City:[facility] Phone: [facility] Code:[place] Email: Financial Information Financial Class:Medicare Advantage Plans Primary Plan Desc:[facility] ADV[facility] PLANS Primary Plan Number:[id number] Secondary Plan Desc: Secondary Plan Number: Assessment Information [facility] CM Progress Note CM Note CM Note Notes: Pt and dghtr in agreement w PT & hospitalist recomendation for SNF, choose [facility] in [place]. Tricia shepherd [facility] will obtain [employer] insurance auth today and pt will d/c tomorrow. Date Signed: 08/14/2017 02:49 PM Electronically Signed By:RENZO [employer] BC CM Progress Note CM Note CM Note Notes: Pt [facility]. Nathan at the [facility] arranged W/C transport for 2:00. Pt concerned about her clothes so dtr Sally was contacted ([phone]), Sally will meet pt at [facility] at 2:30. Final orders faxed. Date Signed: 08/15/2017 12:45 PM Electronically Signed By:Nadine Manuel LCSW Intervention Information
--- NOTE | 2017-08-15 17:06 | GDS ---
[f rep st] DISCHARGE SUMMARY DISCHARGE DIAGNOSES: 1. 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 2. Facial and arm hematoma, as a result of the falls. 3. Hematuria. 4. Concussion. 5. History of coronary artery disease with percutaneous intervention to the left anterior descending diagonal, on dual antiplatelet therapy. PROCEDURES: 1. 08/13/2017: Cervical spine CT, which showed no acute posttraumatic abnormality. 2. 08/13/2017: Chest x-ray, which showed no acute abnormalities. 3. 08/13/2017: Forearm x-ray, which showed no osseous abnormalities. 4. 08/13/2017: Head CT, which showed diffuse cerebral atrophy with no acute intracranial findings. BRIEF HISTORY: Please see dictated H and P from Dr. Hoffman for complete details. The patient is a 76 -year-old female, who has a history of CAD with percutaneous intervention in November. She has been s een by Neurology as an outpatient and had a brain MRI a few days ago. She was given Valium. Upon ge tting back home, she had a mechanical fall. It was felt that she had a concussion after this. The day she was walking to meet her friend down a ramp, and had a mechanical fall with resultant for earm trauma and lip trauma. She was brought into the Emergency Department via EMS and noted to have multiple bruises. HOSPITAL COURSE BY PROBLEM: 1. Multiple falls. She has no obvious fractures present. This is likely related to her movement di sorder. She has also been noted to be hypotensive, and so her losartan has been held on her discharg e. She will be transferred to SNF rehab. 2. Hematoma. Her H and H are stable on discharge. 3. Hematuria. She has no urine RBC seen. 4. Concussion. She will be sent to rehab for this. 5. History of left anterior descending diagonal stenting in November. She has been placed on dual an tiplatelet therapy. Her home aspirin and Plavix have been continued. PHYSICAL EXAM: VITAL SIGNS: On day of discharge, blood pressure of 113/67, heart rate 67, respirati ons 16, O2 saturation 97% on 2 L/minute. GENERAL: She is a pleasant female in no apparent distress. EYES: PERRL. HEART: Regular rate and rhythm. LUNGS: Clear to auscultation. SKIN: She has a l arge hematoma extending from her lips to her submental region. Her right forearm also has a large he matoma. RESULTS PENDING: None. DIET: Cardiac. DISCHARGE MEDICATIONS: Please see med reconciliation. ACTIVITY: Per rehab facility. DISCHARGE INSTRUCTIONS: 1. Have lip suturing removed at rehab facility. 2. Follow up with Dr. Peace in 1 month. 3. Follow up with PCP in 1-2 weeks. /[id number]/MODL
== END 2017-08-15 14:29 | DRG 89 ==
LOC: EDUNIT# → F3N 19:54
PROVIDERS: ADMIT Surgery; ATTEND Surgery
PROC: 0CQ0XZZ Repair Upper Lip, External Approach (ICD-10-PCS; principal; 2017-08-13)
DX: S06.0X9A Concussion with loss of consciousness of unspecified duration, initial encounter (principal); S01.511A Laceration without foreign body of lip, initial encounter; S00.83XA Contusion of other part of head, initial encounter; S40.021A Contusion of right upper arm, initial encounter; W19.XXXA Unspecified fall, initial encounter; Y92.008 Other place in unspecified non-institutional (private) residence as the place of occurrence of the external cause; G25.9 Extrapyramidal and movement disorder, unspecified; I25.10 Atherosclerotic heart disease of native coronary artery without angina pectoris; G50.0 Trigeminal neuralgia; I10 Essential (primary) hypertension; Z95.5 Presence of coronary angioplasty implant and graft; Z87.81 Personal history of (healed) traumatic fracture; Z85.3 Personal history of malignant neoplasm of breast; Z91.81 History of falling
CPT/HCPCS: 92523-GN; 96374; 97162-GP; 97166-GO; 97535-GO; G0390; G8978-GP-CK; G8979-GP-CI; G8987-GO-CK; G8988-GO-CI; G9165-GN-CH; G9166-GN-CH; G9167-GN-CH; J2405

== ENCOUNTER 2018-01-31 04:02 | Inpatient (IN) | payer OTHER ==
[2018-01-31] MEDS ORDERED: NS 1,000 ML IV ONE (04:08)
--- NOTE | 2018-01-31 04:13 | EDPHY ---
H & P Time Seen by Provider: 01/31/18 04:13 HPI/ROS: HPI CHIEF COMPLAINT: Left hip pain, coccyx pain HISTORY OF PRESENT ILLNESS: Patient is a very pleasant 77-year-old female she has a neurological movement disorder which causes her to have recurrent falls, additionally she has coronary artery disease, she states that she got up to use the bathroom and fell on carpet in her house. She was unable to get up. She complains of left hip pain. She received 100 mcg IV fentanyl prior to arrival. Upon arrival to the emergency room she is complaining of left hip pain and sacral pain. Denies chest pain or shortness of breath. Denies head strike or neck pain. Past Medical History: Neurological movement disorder, anxiety, depression, coronary disease Past Surgical History: No recent surgery Social History: Lives independently in a private residence with a roommate. Family History: Noncontributory ROS REVIEW OF SYSTEMS: A comprehensive 10 point review of systems is otherwise negative aside from elements mentioned in the history of present illness. Exam Constitutional appears well nontoxic, elderly, triage nursing summary reviewed , vital signs reviewed, awake/alert. Eyes normal conjunctivae and sclera, EOMI, PERRLA. HENT normal inspection, atraumatic, moist mucus membranes, no epistaxis, neck supple/ no meningismus, no raccoon eyes. Respiratory clear to auscultation bilaterally, normal breath sounds, no respiratory distress, no wheezing. Cardiovascular rate normal, regular rhythm, no murmur, no edema, distal pulses normal. Gastrointestinal soft, non-tender, no rebound, no guarding, normal bowel sounds, no distension, no pulsatile mass. Genitourinary no CVA tenderness. Musculoskeletal left lower extremity: Distally neurovascular intact, good cap refill, tender palpation over the left lateral hip, with any range of the left hip causes her discomfort. Leg is does not show beer shortly rotated. Additionally on her back exam she has pain over her coccyx region. no midline vertebral tenderness, full range of motion, no calf swelling, no tenderness of extremities, no meningismus, good pulses, neurovascularly intact. Skin pink, warm, & dry, no rash, skin atraumatic. Neurologic awake, alert and oriented x 3, AAOx3, moves all 4 extremities equally, motor intact, sensory intact, CN II-XII intact, normal cerebellar, normal vision, normal speech. Psychiatric normal mood/affect. Heme/Lymph/Immune no lymphadenopathy. Differential Diagnosis: Includes but is not limited to in a particular order multiple contusions, multiple falls, pelvis fracture, hip fracture, sacral fracture, coccyx fracture, electrolyte disturbance, dehydration Medical Decision Making: Plan for this patient x-ray of the pelvis, x-ray of the left hip, basic blood work, and re-evaluate. Re-evaluation: 05: CT and x-rays reviewed. CT shows pelvic fracture of the right superior inferior pubic rami. Patient has too much pain to move both of her legs. She is crying IV pain medicine here in emergency room. Blood work has been reviewed. Given her age, pelvic fracture I will need to be admitted to the hospital for PT OT and possible placement. Pain control. Spoke with the hospitalist service Dr. Vegas. Agrees to admit. Source: Patient - Personal History Tetanus Vaccine Date: < 10 years - Medical/Surgical History Hx Asthma: No Hx Chronic Respiratory Disease: No Hx Diabetes: No Hx Cardiac Disease: Yes Hx Renal Disease: No Hx Cirrhosis: No Hx Alcoholism: No Hx HIV/AIDS: No Hx Splenectomy or Spleen Trauma: No Other PMH: trigeminal neuralgia, surgery rhizotomy- deadened that nerve , 2011. ( facial droop on right side of face) suspect movement disorders,i.e., ataxia and CAD with stents (11/2016),parkinsonism. HTN, right side breast ca (93) with mastectomy and reconstructive surgery, tubal ligation, RUE ortho with hardware - Social History Smoking Status: Never smoked Constitutional: Initial Vital Signs Temperature (C) 36.8 C 01/31/18 04:10 Heart Rate 64 01/31/18 04:10 Respiratory Rate 18 01/31/18 04:10 Blood Pressure 169/92 H 01/31/18 04:10 O2 Sat (%) 92 01/31/18 04:10 O2 Delivery Mode Room Air O2 (L/minute) 2 Allergies/Adverse Reactions: No Known Allergies Allergy (Verified 01/31/18 04:14) Home Medications: Medication Instructions Recorded Herbals/Supplements -Info Only 1 ea PO DAILY 12/08/16 LORazepam [Ativan (*)] 0.5 mg PO Q8H PRN 12/08/16 Aspirin [Aspirin 81mg (*)] 81 mg PO HS 09/28/17 Citalopram [CeleXA 20 MG] 20 mg PO HS 08/13/17 Ibuprofen 400 mg PO TID #90 tablet 08/15/17 Medical Decision Making - Data Points Laboratory Results: Laboratory Results 01/31/18 04:00 01/31/18 04:00 01/31/18 01/31/18 01/31/18 04:00 04:00 04:00 WBC 6.18 10^3/uL 10^3/uL (3.80-9.50) RBC 4.42 10^6/uL 10^6/uL (4.18-5.33) Hgb 14.8 g/dL g/dL (12.6-16.3) Hct 44.3 % % (38.0-47.0) MCV 100.2 fL H fL (81.5-99.8) MCH 33.5 pg pg (27.9-34.1) MCHC 33.4 g/dL g/dL (32.4-36.7) RDW 14.6 % % (11.5-15.2) Plt Count 199 10^3/uL 10^3/uL (150-400) MPV 10.5 fL fL (8.7-11.7) Neut % (Auto) 40.1 % % (39.3-74.2) Lymph % (Auto) 46.1 % H % (15.0-45.0) [place] % (Auto) 8.3 % % (4.5-13.0) Eos % (Auto) 1.6 % % (0.6-7.6) Baso % (Auto) 1.3 % % (0.3-1.7) Nucleat RBC Rel Count 0.3 % H % (0.0-0.2) Absolute Neuts (auto) 2.48 10^3/uL 10^3/uL (1.70-6.50) Absolute Lymphs (auto) 2.85 10^3/uL 10^3/uL (1.00-3.00) Absolute Monos (auto) 0.51 10^3/uL 10^3/uL (0.30-0.80) Absolute Eos (auto) 0.10 10^3/uL 10^3/uL (0.03-0.40) Absolute Basos (auto) 0.08 10^3/uL 10^3/uL (0.02-0.10) Absolute Nucleated RBC 0.02 10^3/uL H 10^3/uL (0-0.01) Immature Gran % 2.6 % H % (0.0-1.1) Immature Gran # 0.16 10^3/uL H 10^3/uL (0.00-0.10) PT 12.7 SEC SEC (12.0-15.0) INR 0.93 (0.83-1.16) APTT 26.5 SEC SEC (23.0-38.0) Sodium 144 mEq/L mEq/L (135-145) Potassium 4.1 mEq/L mEq/L (3.5-5.2) Chloride 103 mEq/L mEq/L (97-110) Carbon Dioxide 28 mEq/l mEq/l (22-31) Anion Gap 13 mEq/L mEq/L (8-16) BUN 13 mg/dL mg/dL (7-23) Creatinine 0.5 mg/dL L mg/dL (0.6-1.0) Estimated GFR > 60 Glucose 81 mg/dL mg/dL (70-100) Calcium 9.1 mg/dL mg/dL (8.5-10.4) Medications Given: Discontinued Medications Fentanyl (Sublimaze) 50 mcg IVP EDNOW ONE Stop: 01/31/18 04:45 Last Admin: 01/31/18 04:50 Dose: 50 mcg Hydromorphone HCl (Dilaudid) 0.5 mg IVP EDNOW ONE Stop: 01/31/18 05:11 Last Admin: 01/31/18 05:14 Dose: 0.5 mg Sodium Chloride (Ns) 1,000 mls @ 0 mls/hr IV ONCE ONE; Wide Open PRN Reason: Protocol Stop: 01/31/18 04:09 Last Admin: 01/31/18 05:07 Dose: 1,000 mls Departure - Departure Disposition: [facility] In[facility] Acute Clinical Impression: Pelvis fracture Qualifiers: Encounter type: initial encounter Pelvic bone location: ischium Fracture type: closed Fracture morphology: other fracture Laterality: right Qualified Code(s): S32.691A - Other specified fracture of right ischium, initial encounter for closed fracture Condition: Fair Referrals: Patient,NotPresent [Unknown] - As per Instructions
[2018-01-31 04:21] LABS: PLATELET COUNT 199 10^3/uL (150-400)
[2018-01-31 04:30] LABS: INR 0.93 (0.83-1.16); PROTIME(PATIENT) 12.7 SEC (12.0-15.0)
[2018-01-31] MEDS ORDERED: fentaNYL 100 MCG/2 ML INJ IVP ONE (04:44)
[2018-01-31] MEDS ORDERED: fentaNYL 100 MCG/2 ML INJ ONE (04:45)
[2018-01-31] MEDS ORDERED: HYDROmorphONE/DILAUDID 2 MG/ML INJ IVP ONE (05:10)
[2018-01-31] MEDS ORDERED: ONDANSETRON 4 MG/2 ML VIAL IVP PRN (05:21)
[2018-01-31] MEDS ORDERED: HYDROmorphone HCL/NS 0.5 MG/ML SYR IVP PRN (05:53)
--- NOTE | 2018-01-31 06:03 | PDGENHP ---
History and Physical - Chief Complaint Pelvic pain - History of Present Illness 77 yo F w/ hx of parkinsonism and CAD presents after a fall. Patient was trying to get up at night to go to the bathroom and fell down, hitting her pelvis. She had severe pain after this. She has frequent falls at home due to her parkinsonism, even though she states that she moves around well with her walker. She has an aide that lives with her 24 hours a day, although she does not tend to wake the aide up to help her get up at night. Work-up in the ED notable for multiple pelvic fractures. Currently her pain is well controlled as long as she doesn't move. Her pain is severe with movement. History Information - Allergies/Home Medication List Allergies/Adverse Reactions: No Known Allergies Allergy (Verified 01/31/18 04:14) Home Medications: Herbals/Supplements -Info Only 1 ea PO DAILY 12/08/16 [Last Taken 12/08/16] LORazepam [Ativan (*)] 0.5 mg PO Q8H PRN 12/08/16 [Last Taken 08/12/17] Aspirin [Aspirin 81mg (*)] 81 mg PO HS 08/13/17 [Last Taken 08/12/17] Citalopram [CeleXA 20 MG] 20 mg PO HS 08/13/17 [Last Taken 08/12/17] I have personally reviewed and updated: family history, medical history - Past Medical History coronary artery disease Additional medical history: Parkinsonism - Surgical History Reports: coronary stent - Family History Positive for: CAD - Social History Smoking Status: Never smoked Review of Systems Review of Systems: ROS: 10pt was reviewed & negative except for what was stated in HPI & below Physical Exam Physical Exam: Temp Pulse Resp BP Pulse Ox 36.8 C 58 L 16 146/87 H 94 01/31/18 04:10 01/31/18 05:30 01/31/18 05:30 01/31/18 05:30 01/31/18 05:30 O2 (L/minute) 2 Constitutional: appears nourished, uncomfortable Eyes: PERRL, EOMI Ears, Nose, Mouth, Throat: moist mucous membranes, no oral mucosal ulcers Cardiovascular: regular rate and rhythym, no murmur, rub, or gallop Respiratory: no respiratory distress, clear to auscultation Gastrointestinal: normoactive bowel sounds, soft, non-tender abdomen Skin: warm, normal color Musculoskeletal: other (b/l leg weakness 2/2 pain) Neurologic: AAOx3, CN II-XII Intact, other (b/l leg weakness 2/2 pain) Psychiatric: interacting appropriately, not anxious Lab Data & Imaging Review 01/31/18 04:00 01/31/18 04:00 WBC 6.18 10^3/uL (3.80-9.50) 01/31/18 04:00 RBC 4.42 10^6/uL (4.18-5.33) 01/31/18 04:00 Hgb 14.8 g/dL (12.6-16.3) 01/31/18 04:00 Hct 44.3 % (38.0-47.0) 01/31/18 04:00 MCV 100.2 fL (81.5-99.8) H 01/31/18 04:00 MCH 33.5 pg (27.9-34.1) 01/31/18 04:00 MCHC 33.4 g/dL (32.4-36.7) 01/31/18 04:00 RDW 14.6 % (11.5-15.2) 01/31/18 04:00 Plt Count 199 10^3/uL (150-400) 01/31/18 04:00 MPV 10.5 fL (8.7-11.7) 01/31/18 04:00 Neut % (Auto) 40.1 % (39.3-74.2) 01/31/18 04:00 Lymph % (Auto) 46.1 % (15.0-45.0) H 01/31/18 04:00 [place] % (Auto) 8.3 % (4.5-13.0) 01/31/18 04:00 Eos % (Auto) 1.6 % (0.6-7.6) 01/31/18 04:00 Baso % (Auto) 1.3 % (0.3-1.7) 01/31/18 04:00 Nucleat RBC Rel Count 0.3 % (0.0-0.2) H 01/31/18 04:00 Absolute Neuts (auto) 2.48 10^3/uL (1.70-6.50) 01/31/18 04:00 Absolute Lymphs (auto) 2.85 10^3/uL (1.00-3.00) 01/31/18 04:00 Absolute Monos (auto) 0.51 10^3/uL (0.30-0.80) 01/31/18 04:00 Absolute Eos (auto) 0.10 10^3/uL (0.03-0.40) 01/31/18 04:00 Absolute Basos (auto) 0.08 10^3/uL (0.02-0.10) 01/31/18 04:00 Absolute Nucleated RBC 0.02 10^3/uL (0-0.01) H 01/31/18 04:00 Immature Gran % 2.6 % (0.0-1.1) H 01/31/18 04:00 Immature Gran # 0.16 10^3/uL (0.00-0.10) H 01/31/18 04:00 PT 12.7 SEC (12.0-15.0) 01/31/18 04:00 INR 0.93 (0.83-1.16) 01/31/18 04:00 APTT 26.5 SEC (23.0-38.0) 01/31/18 04:00 Sodium 144 mEq/L (135-145) 01/31/18 04:00 Potassium 4.1 mEq/L (3.5-5.2) 01/31/18 04:00 Chloride 103 mEq/L (97-110) 01/31/18 04:00 Carbon Dioxide 28 mEq/l (22-31) 01/31/18 04:00 Anion Gap 13 mEq/L (8-16) 01/31/18 04:00 BUN 13 mg/dL (7-23) 01/31/18 04:00 Creatinine 0.5 mg/dL (0.6-1.0) L 01/31/18 04:00 Estimated GFR > 60 01/31/18 04:00 Glucose 81 mg/dL (70-100) 01/31/18 04:00 Calcium 9.1 mg/dL (8.5-10.4) 01/31/18 04:00 Imaging Review: CT Pelvis bilateral sacral ala fxs non displaced right sup/inf pubic ramus fxs right pelvic sidewall blood products No hip fx Spoke w Dr Aranda at 512am Finer Assessment & Plan Assessment: 77 yo F w/ CAD and parkinsonism p/w pelvic fractures after a fall. Plan: 1. Pelvic fractures - Suffered after a mechanical fall. Non-surgical injury but in significant pain currently and unable to ambulate. - Admit under inpatient status - Pain control (oxycodone, Dilaudid) - PT/OT evaluations 2. Hx. CAD - Had stent placed in November of 2016, now only on ASA. 3. 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 This issue is contributing to patient's frequent falls. - PT/OT Diet - Regular Code - Full Ppx- LMWH Dispo - Admit under inpatient status as I anticipate patient will need several days to control pain and work with therapy to re-establish mobility.
[2018-01-31] MEDS ORDERED: LORazepam 2 MG/ML INJ IVP ONE (06:13)
[2018-01-31] MEDS ORDERED: LORazepam 2 MG/ML INJ ONE (06:18)
--- NOTE | 2018-01-31 07:38 | PDMN ---
Medical Necessity Medical necessity: C/M review: Patient meets INPT criteria under [facility] Musculoskeletal disease GRG (Bilateral sacral fractures): Acute and persistent bilateral sacral ala fractures nondisplaced, right inferior / superior ramus fractures, right pelvic sidewall blood products on CT, pelvic fractures non- surgical injury, new inability to ambulate, pain requiring ongoing IV Dilaudid, oral oxycodone, acute inpt PT/OT, comorbid mechanical fall just prior to this admission, Parkinsonism - contributing to patient falls, history of CAD. MD anticipates > 2 [place] LOS for ongoing med nec for eval and TX of above. Patient is Medicare Advantage which follows guidelines CMS puts forth.
[2018-01-31] MEDS ORDERED: MELATONIN 3 MG TAB PO PRN (08:16)
[2018-01-31] MEDS: ENOXAPARIN 40 MG/0.4 ML SYR SC SCH (09:17)
[2018-01-31] MEDS: MULTIVITAMINS 1 EACH TAB PO SCH ×2 (09:17→09:26)
[2018-01-31] MEDS: oxyCODONE IR 5 MG TAB PO PRN ×4 (09:19→23:46)
[2018-01-31] MEDS: ACETAMINOPHEN 325 MG TAB PO PRN (11:55)
--- NOTE | 2018-01-31 15:47 | HOSPPROG ---
Hospitalist Progress Note Assessment/Plan: Evening rounds on admission day DIAGNOSES: -multiple pelvic and sacral fractures, closed -fall at home -ongoing high fall risk and gait instability related to Parkinson's disease -stable chronic coronary disease without symptoms at this time PLANS: -pain management -PT and OT -fall risk precautions -DVT prophylaxis -continue usual cardiac meds -begin discharge planning efforts as she will clearly need inpatient rehabilitation or SNF Care SUBJECTIVE: Ongoing pain whenever she moves but reasonably comfortable while lying still No nausea, did eat No shortness of breath or chest symptoms No fever symptoms OBJECTIVE Vitals reviewed: Minimal elevated blood pressures otherwise normal Product Safety Tester, my review: Exam: alert oriented skin warm dry color ok resps not labored lungs clear BSs heart regular abd soft nondistended nontender, bowel sounds present iv site ok Objective: Vital Signs Temp Pulse Resp BP Pulse Ox 36.8 C 70 16 149/91 H 90 L 01/31/18 11:53 01/31/18 11:53 01/31/18 11:53 01/31/18 11:53 01/31/18 11:53 PT 12.7 SEC (12.0-15.0) 01/31/18 04:00 INR 0.93 (0.83-1.16) 01/31/18 04:00 ICD10 Worksheet Patient Problems: Problems Problem Status Onset Pelvis fracture Acute Chest pain Acute Lip laceration Acute Multiple contusions Acute
[2018-01-31] MEDS: HYDROmorphone HCL/NS 0.5 MG/ML SYR IVP PRN ×2 (20:33→23:56)
[2018-01-31] MEDS: CITALOPRAM 20 MG TAB PO SCH (20:38)
[2018-01-31] MEDS: ASPIRIN 81 MG CHEWABLE TAB PO SCH (20:38)
[2018-01-31] MEDS: LORazepam 0.5 MG TAB PO SCH (20:38)
[2018-01-31] MEDS: ONDANSETRON DISINTEGRATING 4 MG TAB PO PRN (23:47)
[2018-02-01] MEDS: ACETAMINOPHEN 325 MG TAB PO PRN ×2 (03:33→15:00)
[2018-02-01] MEDS: HYDROmorphone HCL/NS 0.5 MG/ML SYR IVP PRN ×4 (03:41→14:02)
[2018-02-01] MEDS: ONDANSETRON DISINTEGRATING 4 MG TAB PO PRN (06:40)
[2018-02-01] MEDS: ENOXAPARIN 40 MG/0.4 ML SYR SC SCH (08:09)
[2018-02-01] MEDS: oxyCODONE IR 5 MG TAB PO PRN ×3 (08:14→17:57)
[2018-02-01] MEDS: MULTIVITAMINS 1 EACH TAB PO SCH (08:18)
[2018-02-01] MEDS: NS 1,000 ML IV SCH ×2 (10:50→19:55)
--- NOTE | 2018-02-01 12:47 | ASMTCMCOM ---
CM Note CM Note Notes: Pt admitted after fall at home w/pelvic fx. Pt lives at home and has person who lives with her who helps her out although she does not get up with her during night. Daughter stated that pt thinks she can do it on her own and probably doesn't want to bother anyone but Sally feels she will need assistance durng night after this. Pt will likely need SNF, awaiting PT/OT rec's, discussed w/Sally and their first choice would be [facility] (pt has relative who is RN at [facility]), referral sent and notified Karen. Pt was at [facility] last time she needed SNF and did not have good experience there. [facility] would be 2nd choice. CM will follow. Date Signed: 02/01/2018 12:47 PM Electronically Signed By:Kemi Saucedo RN
--- NOTE | 2018-02-01 15:24 | HOSPPROG ---
Hospitalist Progress Note Assessment/Plan: 77 yo F with pmh of parkinsonism and frequent falls admitted s/p fall with bilateral sacral fxs # sacral fractures: involving the right superior and inferior pubic rami as well as the left sacrum. Significant pain. Non operative injury and patient is WBAT. PT/OT involved, likely to need snf after dc # pain: uncontrolled earlier today, will increase frequency of pain meds and add valium for likely muscle spasm # Parkinsonism: leading to frequent falls, continue op mgmt # falls: as per problem 1, pt/ot and snf # CAD: recent stent placement, no acute issues Patient new to my care. Old records reviewed/summarized as above. Care plan reviewed and further hx obtained from daughter present at bedside. High risk requiring IV opiates. Subjective: patient notes this am having significant pain especially when working with pt. currently pain is controlled as long as she is not moving Objective: Vital Signs Temp Pulse Resp BP Pulse Ox 36.6 C 71 16 99/57 L 92 02/01/18 11:49 02/01/18 11:49 02/01/18 11:49 02/01/18 11:49 02/01/18 11:49 01/31/18 02/01/18 02/02/18 05:59 05:59 05:59 Intake Total 750 200 Output Total 600 0 Balance 150 200 PT 12.7 SEC (12.0-15.0) 01/31/18 04:00 INR 0.93 (0.83-1.16) 01/31/18 04:00 awake alert nad anicteric op clear rrr no mrg cta to ant exam soft nt nd no cce warm dry well perfused ICD10 Worksheet Patient Problems: Problems Problem Status Onset Chest pain Acute Lip laceration Acute Multiple contusions Acute Pelvis fracture Acute
[2018-02-01] MEDS ORDERED: HYDROmorphone HCL/NS 0.5 MG/ML SYR IVP PRN (15:39)
[2018-02-01] MEDS: DIAZEPAM 5 MG TAB PO PRN (16:33)
[2018-02-01] MEDS: LORazepam 0.5 MG TAB PO SCH (19:54)
[2018-02-01] MEDS: ASPIRIN 81 MG CHEWABLE TAB PO SCH (19:54)
[2018-02-01] MEDS: CITALOPRAM 20 MG TAB PO SCH (19:54)
[2018-02-02] MEDS: oxyCODONE IR 5 MG TAB PO PRN ×6 (00:21→21:27)
[2018-02-02] MEDS: ONDANSETRON DISINTEGRATING 4 MG TAB PO PRN (04:02)
[2018-02-02] MEDS: MULTIVITAMINS 1 EACH TAB PO SCH ×2 (09:21→10:00)
[2018-02-02] MEDS: ENOXAPARIN 40 MG/0.4 ML SYR SC SCH ×2 (09:21→10:00)
[2018-02-02] MEDS: ACETAMINOPHEN 325 MG TAB PO PRN (09:57)
--- NOTE | 2018-02-02 11:59 | HOSPPROG ---
Hospitalist Progress Note Assessment/Plan: 77 yo F with pmh of parkinsonism and frequent falls admitted s/p fall with bilateral sacral fxs # sacral fractures: involving the right superior and inferior pubic rami as well as the left sacrum. Significant pain. Non operative injury and patient is WBAT. PT/OT involved, likely to need snf after dc # pain: remains uncontrolled with any sort of movement, current regimen seems to be working well # Parkinsonism: leading to frequent falls, continue op mgmt # falls: as per problem 1, pt/ot and snf # CAD: recent stent placement, no acute issues High risk requiring IV opiates Subjective: no significant overnight events, patient is currently not having significant pain but with any movement the pain remains severe Objective: Vital Signs Temp Pulse Resp BP Pulse Ox 36.6 C 80 16 144/88 H 92 02/02/18 08:00 02/02/18 08:00 02/02/18 08:00 02/02/18 08:00 02/02/18 08:00 02/01/18 02/02/18 02/03/18 05:59 05:59 05:59 Intake Total 280 379 3928 Output Total 600 800 Balance 150 -350 1200 PT 12.7 SEC (12.0-15.0) 01/31/18 04:00 INR 0.93 (0.83-1.16) 01/31/18 04:00 awake alert nad anicteric op clear rrr no mrg cta to ant exam soft nt nd no cce warm dry well perfused ICD10 Worksheet Patient Problems: Problems Problem Status Onset Pelvis fracture Acute Chest pain Acute Lip laceration Acute Multiple contusions Acute
--- NOTE | 2018-02-02 15:19 | ASMTCMCOM ---
CM Note CM Note Notes: PT/OT rec SNF. [facility] cap, referral sent to pt second choice [facility] SNF, pt and dghtr updated. CM to follow. Date Signed: 02/02/2018 03:19 PM Electronically Signed By:RENZO Gaming
[2018-02-02] MEDS: CITALOPRAM 20 MG TAB PO SCH (21:25)
[2018-02-02] MEDS: ASPIRIN 81 MG CHEWABLE TAB PO SCH (21:25)
[2018-02-02] MEDS: LORazepam 0.5 MG TAB PO SCH (21:26)
[2018-02-03] MEDS: oxyCODONE IR 5 MG TAB PO PRN ×3 (01:31→09:43)
[2018-02-03] MEDS: ENOXAPARIN 40 MG/0.4 ML SYR SC SCH (07:54)
[2018-02-03] MEDS ORDERED: NS 500 ML IV ONE (07:56)
[2018-02-03] MEDS: MULTIVITAMINS 1 EACH TAB PO SCH (07:56)
--- NOTE | 2018-02-03 08:25 | CPEKG ---
Heart Rate: 81 RR Interval: 741 P-R Interval: 128 QRSD Interval: 94 QT Interval: 324 QTC Interval: 376 P Hebo: 47 QRS Hebo: -24 T Wave Hebo: 91 EKG Severity - ABNORMAL ECG - EKG Impression: SINUS RHYTHM EKG Impression: MULTIPLE ATRIAL PREMATURE COMPLEXES EKG Impression: BORDERLINE LEFT AXIS DEVIATION EKG Impression: NONSPECIFIC T ABNORMALITIES, LATERAL LEADS Electronically Signed By: Gavino Emerson 10-Feb-2018 09:54:09
[2018-02-03] MEDS: ACETAMINOPHEN 325 MG TAB PO PRN (08:31)
[2018-02-03] MEDS ORDERED: LACTULOSE 20 GM/30 ML UDCUP PO PRN (14:18)
[2018-02-03] MEDS ORDERED: BISACODYL 10 MG SUPP PR PRN (14:18)
[2018-02-03] MEDS ORDERED: MAGNESIUM HYDROXIDE 30 ML UDCUP PO PRN (14:18)
[2018-02-03] MEDS: HYDROCODONE/APAP 10/325 TAB PO PRN ×3 (15:46→23:15)
[2018-02-03] MEDS: METHOCARBAMOL 750 MG TAB PO PRN ×2 (15:46→18:45)
[2018-02-03] MEDS: POLYETHYLENE GLYCOL 3350 17 GM PKT PO PRN (15:47)
--- NOTE | 2018-02-03 19:05 | HOSPPROG ---
Hospitalist Progress Note Assessment/Plan: 77 yo F with pmh of parkinsonism and frequent falls admitted s/p fall with bilateral sacral fxs # sacral fractures: involving the right superior and inferior pubic rami as well as the left sacrum. Significant pain. Non operative injury and patient is WBAT. PT/OT involved, likely to need snf after dc # pain: remains uncontrolled with any sort of movement, current regimen seems to be working well # Parkinsonism: leading to frequent falls, continue op mgmt # falls: as per problem 1, pt/ot and snf # CAD: recent stent placement, no acute issues High risk requiring IV opiates Dispo: likely to dc in coming days to SNF Subjective: no significant overnight events, continues to have a hard time managing pain Objective: Vital Signs Temp Pulse Resp BP Pulse Ox 37.2 C 84 25 H 141/81 H 93 02/03/18 15:44 02/03/18 15:44 02/03/18 15:44 02/03/18 15:44 02/03/18 15:44 02/02/18 02/03/18 02/04/18 05:59 05:59 05:59 Intake Total 450 3100 Output Total 800 950 650 Balance -350 2150 -650 PT 12.7 SEC (12.0-15.0) 01/31/18 04:00 INR 0.93 (0.83-1.16) 01/31/18 04:00 awake alert nad anicteric op clear rrr no mrg cta to ant exam soft nt nd no cce warm dry well perfused ICD10 Worksheet Patient Problems: Problems Problem Status Onset Pelvis fracture Acute Chest pain Acute Lip laceration Acute Multiple contusions Acute
[2018-02-03] MEDS: CITALOPRAM 20 MG TAB PO SCH (20:23)
[2018-02-03] MEDS: LORazepam 0.5 MG TAB PO SCH (20:24)
[2018-02-03] MEDS: DIAZEPAM 5 MG TAB PO PRN (20:24)
[2018-02-03] MEDS: SENNOSIDES/DOCUSATE SODIUM TAB PO SCH (20:24)
[2018-02-03] MEDS: ASPIRIN 81 MG CHEWABLE TAB PO SCH (20:24)
[2018-02-04] MEDS: HYDROCODONE/APAP 10/325 TAB PO PRN (05:43)
[2018-02-04] MEDS: METHOCARBAMOL 750 MG TAB PO PRN ×2 (05:44→09:49)
[2018-02-04] MEDS: SENNOSIDES/DOCUSATE SODIUM TAB PO SCH ×2 (09:49→20:21)
[2018-02-04] MEDS: ENOXAPARIN 40 MG/0.4 ML SYR SC SCH (09:50)
[2018-02-04] MEDS: MULTIVITAMINS 1 EACH TAB PO SCH (09:50)
[2018-02-04] MEDS: POLYETHYLENE GLYCOL 3350 17 GM PKT PO PRN (09:50)
[2018-02-04] MEDS ORDERED: NS 1,000 ML IV ONE (12:24)
[2018-02-04] MEDS ORDERED: ACETAMINOPHEN 325 MG TAB PO SCH (12:30)
--- NOTE | 2018-02-04 12:34 | HOSPPROG ---
Hospitalist Progress Note Assessment/Plan: 77 yo F with pmh of parkinsonism and frequent falls admitted s/p fall with bilateral sacral fxs # acute encephalopathy- suspect toxic from multiple sedating medications- patient acutely confused thinking she standing in the bathroom while lying in bed CBC normal - DC Valium and IV Dilaudid - hold nighttime Ativan - DC oxycodone - scheduled Tylenol - start Toradol - continue p.r.n. Ward - [facility] until [facility] status clears # acute hypoxic respiratory failure- CXR from admit (personally reviewed and interpreted) no infiltrates Oxygen saturations 93% on 5 L - suspect much is from poor respiratory effort postop and somnolence from encephalopathy - continue encourage IS - continue encourage ambulation - recheck CXR # sacral fractures: involving the right superior and inferior pubic rami as well as the left sacrum. Significant pain. Non operative injury and patient is - WBAT. - PT/OT - DC to [facility] tomorrow if above resolved # pain- changes as above # Parkinsonism: leading to frequent falls, continue op mgmt # falls: as per problem 1, pt/ot and snf # CAD: recent stent placement, no acute issues High risk requiring IV opiates Dispo: likely to dc in coming days to SNF Subjective: feels confused Objective: Vital Signs Temp Pulse Resp BP Pulse Ox 37.0 C 84 22 H 175/92 H 93 02/04/18 11:34 02/04/18 11:34 02/04/18 11:34 02/04/18 11:34 02/04/18 11:34 Laboratory Results 02/04/18 10:40 02/04/18 10:40 02/03/18 02/04/18 02/05/18 05:59 05:59 05:59 Intake Total 3100 Output Total 950 1300 Balance 2150 -1300 PT 12.7 SEC (12.0-15.0) 01/31/18 04:00 INR 0.93 (0.83-1.16) 01/31/18 04:00 - Physical Exam Constitutional: chronically ill appearing Eyes: anicteric sclera Ears, Nose, Mouth, Throat: dry mucous membranes Cardiovascular: regular rate and rhythym Respiratory: no respiratory distress, No expiratory wheeze, No inspiratory crackles Gastrointestinal: normoactive bowel sounds Genitourinary: no bladder fullness Skin: warm Musculoskeletal: No asymmetric calves Neurologic: No AAOx3 Psychiatric: encephalopathic Lymph, Heme, Immunologic: no cervical LAD ICD10 Worksheet Patient Problems: Problems Problem Status Onset Pelvis fracture Acute Chest pain Acute Lip laceration Acute Multiple contusions Acute
[2018-02-04] MEDS: KETOROLAC 30 MG/1 ML SDV IVP PRN ×2 (12:46→20:19)
[2018-02-04] MEDS ORDERED: ACETAMINOPHEN 325 MG TAB PO PRN (13:00)
[2018-02-04] MEDS ORDERED: PROTOCOL POTASSIUM 1 DOSE MISC PRN (15:19)
[2018-02-04] MEDS ORDERED: POTASSIUM CL 10 MEQ TAB PO ONE (18:12)
[2018-02-04] MEDS: HYDROCODONE/APAP 5/325 TAB PO PRN (20:21)
[2018-02-04] MEDS: CITALOPRAM 20 MG TAB PO SCH (20:21)
[2018-02-04] MEDS: ASPIRIN 81 MG CHEWABLE TAB PO SCH (20:22)
[2018-02-05] MEDS: KETOROLAC 30 MG/1 ML SDV IVP PRN ×2 (03:52→11:07)
[2018-02-05] MEDS: METHOCARBAMOL 750 MG TAB PO PRN ×2 (03:52→08:03)
[2018-02-05] MEDS: HYDROCODONE/APAP 5/325 TAB PO PRN ×3 (03:57→11:07)
[2018-02-05] MEDS: SENNOSIDES/DOCUSATE SODIUM TAB PO SCH (08:03)
[2018-02-05] MEDS: MULTIVITAMINS 1 EACH TAB PO SCH (08:03)
[2018-02-05] MEDS: ENOXAPARIN 40 MG/0.4 ML SYR SC SCH (08:04)
[2018-02-05 08:15] VITALS: TEMP 97.9; O2SAT 92
[2018-02-05] MEDS ORDERED: POTASSIUM CL 10 MEQ TAB PO ONE (09:53)
--- NOTE | 2018-02-05 10:46 | PDIAF ---
- Diagnosis Diagnosis: pelvic fracture Code Status: Full Code - Medication Management Discharge Medications: Medications to Continue on Transfer Herbals/Supplements -Info Only 1 ea PO DAILY 12/08/16 [Last Taken 12/08/16] Aspirin [Aspirin 81mg (*)] 81 mg PO HS 08/13/17 [Last Taken 01/30/18] Citalopram [CeleXA 20 MG] 10 mg PO HS 08/13/17 [Last Taken 01/30/18] Melatonin [Melatonin 3 MG (*)] 3 mg PO HS PRN 01/31/18 [Last Taken Unknown] Multivitamins [Multivitamin (*)] 1 each PO DAILY 01/31/18 [Last Taken Unknown] Acetaminophen [Tylenol 325mg (*)] 650 mg PO Q4 PRN tab 02/05/18 [Last Taken Unknown] Hydrocodone/APAP 5/325 [[place] 5/325 (*)] 1 - 2 tab PO Q4HRS PRN tab 02/05/18 [ Last Taken Unknown] LORazepam [Ativan (*)] 0.125 mg PO HS PRN #0 02/05/18 [Last Taken Unknown] Methocarbamol [Robaxin 750 mg (*)] 750 mg PO QID PRN tab 02/05/18 [Last Taken Unknown] Polyethylene Glycol 3350 [Miralax 17 gm (*)] 17 gm PO DAILY PRN pkt 02/05/18 [ Last Taken Unknown] Sennosides/Docusate Sodium [Senokot-S] 1 - 2 tab PO BID tab 02/05/18 [Last Taken Unknown] Discharge Medications: Refer to the Discharge Home Medication list for PRN reason. - Orders Services needed: Registered Nurse, Physical Therapy, Occupational Therapy Diet Texture: Regular Texture Diet, Thin Liquids, Meds Whole in Puree - Follow Up Care Current Providers and Referrals: Patient,NotPresent [Unknown] - As per Instructions
[2018-02-05 11:44] VITALS: BP 145/99; PULSE 101
[2018-02-05 11:46] VITALS: RESP 20
--- NOTE | 2018-02-05 15:57 | GDS ---
[f rep st] DISCHARGE SUMMARY DISCHARGE DIAGNOSES: 1. Sacral fractures, acute, secondary to fall. 2. Parkinsonism with frequent falls. 3. Coronary artery disease. HISTORY OF PRESENT ILLNESS: A 77-year-old female with a history of parkinsonism and frequent falls, who is admitted status post fall with bilateral sacral fractures. For details of patient's initial presentation please see the history and physical, dated 01/31/2018. CONSULTATIVE SERVICES: None. PROCEDURES: None. HOSPITAL COURSE BY ISSUE: 1. Acute bilateral sacral fractures. These were non-operative. Patient was admitted for pain control and transition to detention/rehabilitation for ongoing care. Patient was stabilized on the medical floor with weightbearing as tolerated and treated with IV as well as p.o. pain medications. On the day of disposition, we titrated her regimen and have improved control of her pain, particularly while supine. Patient will be following at [facility] for ongoing physical therapy and occupational therapy in the setting of sacral fractures. 2. Acute hypoxic respiratory failure secondary to atelectasis and poor pulmonary mechanics. The patient has required oxygen during this hospital stay. Initial chest x-ray imaging was negative for any infiltrates. Repeat imaging the day prior to disposition does show atelectasis and poor inspiratory effort. Patient has been treated withinsentive spirometry but will need ongoing physical therapy to optimize her pulmonary mechanics. There is no concern for an underlying infection at the time of discharge as the patient has no elevated white count, fever, or cough. 3. Parkinsonism. No changes were made to her regimen during this hospital stay. 4. Coronary artery disease patient did not have chest pain complaints during her hospital stay. She is being discharged on her outpatient regimen which includes aspirin. MEDICATIONS AT THE TIME OF DISPOSITION: Please reference the med rec printed on 02/05/2018. FOLLOWUP APPOINTMENTS: Primary care provider in the next 2-3 weeks for post- disposition followup. Patient is being discharged to [facility]. PENDING STUDIES: None. TIME SPENT: I spent greater than 30 minutes in the planning and coordination of this discharge. /[id number]/MODL MTDD
== END 2018-02-05 15:02 | DRG 535 ==
LOC: EDUNIT# → F3N 08:09
PROVIDERS: ADMIT Student in an Organized Health Care Education/Training Program; ATTEND Hospitalist
DX: S32.502A Unspecified fracture of left pubis, initial encounter for closed fracture (principal); S32.19XA Other fracture of sacrum, initial encounter for closed fracture; W18.09XA Striking against other object with subsequent fall, initial encounter; Y92.192 Bathroom in other specified residential institution as the place of occurrence of the external cause; J96.01 Acute respiratory failure with hypoxia; J98.11 Atelectasis; G92 Toxic encephalopathy; T42.75XA Adverse effect of unspecified antiepileptic and sedative-hypnotic drugs, initial encounter; I25.10 Atherosclerotic heart disease of native coronary artery without angina pectoris; G20 Parkinson's disease; I10 Essential (primary) hypertension; Z85.3 Personal history of malignant neoplasm of breast; Z95.5 Presence of coronary angioplasty implant and graft; Z91.81 History of falling
CPT/HCPCS: 92526-GN; 92610-GN; 96374; 97116-GP; 97162-GP; 97166-GO; 97530-GO; 97530-GP; 97535-GO; G8978-GP-CM; G8979-GP-CK; G8987-GO-CM; G8988-GO-CK; G8996-GN-CI; G8997-GN-CI; J1170; J1650; J1885; J2060; J3010

== ENCOUNTER → 2018-09-23 | Outpatient (CLI) | payer OTHER | LOC: GIMAGING 11:20 | PROVIDERS: ATTEND Nurse Practitioner Acute Care | DX: M25.571 Pain in right ankle and joints of right foot (principal); M84.861 Other disorders of continuity of bone, right tibia | CPT/HCPCS: 73590-PO; 73610-PO; 73630-PO ==